=== PATIENT | female | born 1930 | race Caucasian/White ===

== ENCOUNTER 2017-08-10 17:06 | Inpatient (IN) | payer OTHER ==
--- NOTE | 2017-08-10 17:44 | EDPHY ---
H & P Stated Complaint: Sent by PCP, swelling to right calf. Time Seen by Provider: 08/10/17 17:43 HPI/ROS: HPI: This 87-year-old female who presents with Chief Complaint:Sent by PCP, swelling to right calf. Location: Right calf Quality: Swelling Duration: 3 days Signs and Symptoms: No bleeding, no radiation, no numbness, no weakness, no tingling, + redness, + weeping, no decreased range of motion Timing: Gradual onset Severity: Moderate Context: Patient presents with complaints of right calf swelling, redness, warmth and weeping clear drainage for the last 3 days per the patient. Was seen by the PCP today who was concerned about deep venous thrombosis so sent to the emergency room for further evaluation. No history of diabetes/peripheral vascular disease/injury. Patient is ambulatory without deficits. Denies any recent long distance trips. No chest pain/shortness of breath/fevers/cold extremities. Modifying Factors: Went to PCP today Comment: ROS: see HPI Constitutional: No fever, no chills, no weight loss Eyes: No blurred vision Respiratory: No shortness of breath, no cough Cardiovascular: No chest pain Gastrointestinal: No nausea, no vomiting no diarrhea Genitourinary: No dysuria Extremities: No myalgias Neurologic: No weakness, no numbness Skin: No rashes Hematologic: No bruising, no bleeding MEDICAL/SURGICAL/SOCIAL HISTORY: Medical history: Hypertension and depression. Surgical history: Denies Social history: Support from son CONSTITUTIONAL: Elderly white female wearing sunglasses, awake and alert, no obvious distress HEENT: Atraumatic and normocephalic, PERRL, EOMI. Tympanic membranes clear. Oropharynx clear, no exudate and moist pink mucosa. Airway patent. No lymphadenopathy. No meningismus. Cardiovascular: Normal S1/S2, regular rate, regular rhythm, without murmur rub or gallop. PULMONARY/CHEST: Symmetrical and nontender. Clear to auscultation bilaterally. Good air movement. No accessory muscle usage. ABDOMEN: Soft, nondistended, nontender, no rebound, no guarding, no peritoneal signs, no masses or organomegaly. No CVAT. EXTREMITIES: 2/2 pedal pulses, right calf is twice the size of the left calf; positive Homans sign. Moderate erythema noted from right midfoot to mid calf with 1+ pitting edema and clear weeping and thickened skin. Hyperpigmentation changes noted in bilateral lower extremities but worse on the right. no deformities, no clubbing, no cyanosis or edema. Right lower extremity Extremely sensitive to light touch. NEUROLOGICAL: no focal neuro deficits. GCS 15. SKIN: Warm and dry, no erythema. no rash. Good capillary refill. Source: Patient Exam Limitations: No limitations - Personal History Current Tetanus Diphtheria and Acellular Pertussis (TDAP): Unsure - Medical/Surgical History Hx Asthma: No Hx Chronic Respiratory Disease: No Hx Diabetes: No Hx Cardiac Disease: No Hx Renal Disease: No Hx Cirrhosis: No Hx Alcoholism: No Hx HIV/AIDS: No Hx Splenectomy or Spleen Trauma: No Other PMH: HTN - Social History Smoking Status: Never smoked Constitutional: Initial Vital Signs Temperature (C) 36.5 C 08/10/17 17:10 Heart Rate 105 H 08/10/17 17:10 Respiratory Rate 16 08/10/17 17:10 Blood Pressure 132/86 H 08/10/17 17:10 O2 Sat (%) 93 08/10/17 17:10 O2 Delivery Mode Room Air Allergies/Adverse Reactions: No Known Allergies Allergy (Unverified 08/10/17 17:17) Home Medications: Medication Instructions Recorded Amlodipine Besylate 08/10/17 Medical Decision Making - Diagnostics Imaging Results: Imaging Impressions Extremity Venous Study 08/10/17 17:43 Impression: No evidence of deep vein thrombosis in the right leg. No answer at extension for Cass Wheeler at 1905 hours. ED Course/Re-evaluation: Labs including blood cultures, IV antibiotics and right lower extremity ultrasound ordered No signs of up hypoxia/respiratory distress/neurovascular compromise/tenting of skin/compartment syndrome/extremities and joints examined above and below area of concern and are neurovascularly intact/ischemia. 1915: Called by radiologist and no signs of deep venous thrombosis. Patient has significant cellulitis and will require admission to the hospital. Discussed case with attending. IV vancomycin 1 g given. 1933: Spoke with hospitalist who kindly agrees to admit patient for further care. Differential Diagnosis: Leg swelling including but not limited to hypoalbuminemia, congestive heart failure, cor pulmonale, chronic venous stasis and DVT. - Data Points Laboratory Results: Laboratory Results 08/10/17 18:12 08/10/17 18:12 08/10/17 08/10/17 18:12 18:12 WBC 9.04 10^3/uL 10^3/uL (3.80-9.50) RBC 4.08 10^6/uL L 10^6/uL (4.18-5.33) Hgb 12.3 g/dL L g/dL (12.6-16.3) Hct 36.9 % L % (38.0-47.0) MCV 90.4 fL fL (81.5-99.8) MCH 30.1 pg pg (27.9-34.1) MCHC 33.3 g/dL g/dL (32.4-36.7) RDW 13.1 % % (11.5-15.2) Plt Count 263 10^3/uL 10^3/uL (150-400) MPV 11.2 fL fL (8.7-11.7) Neut % (Auto) 70.3 % % (39.3-74.2) Lymph % (Auto) 20.4 % % (15.0-45.0) Maury % (Auto) 7.4 % % (4.5-13.0) Eos % (Auto) 1.2 % % (0.6-7.6) Baso % (Auto) 0.4 % % (0.3-1.7) Nucleat RBC Rel Count 0.0 % % (0.0-0.2) Absolute Neuts (auto) 6.35 10^3/uL 10^3/uL (1.70-6.50) Absolute Lymphs (auto) 1.84 10^3/uL 10^3/uL (1.00-3.00) Absolute Monos (auto) 0.67 10^3/uL 10^3/uL (0.30-0.80) Absolute Eos (auto) 0.11 10^3/uL 10^3/uL (0.03-0.40) Absolute Basos (auto) 0.04 10^3/uL 10^3/uL (0.02-0.10) Absolute Nucleated RBC 0.00 10^3/uL 10^3/uL (0-0.01) Immature Gran % 0.3 % % (0.0-1.1) Seg Neutrophils % 82 % % Lymphocytes % 12 % % Monocytes % 3 % % Eosinophils % 3 % % Immature Gran # 0.03 10^3/uL 10^3/uL (0.00-0.10) Absolute Seg Neuts 7.41 10^/uL H 10^/uL (1.70-6.50) Absolute Lymphocytes 1.08 10^3/uL 10^3/uL (1.00-3.00) Absolute Monocytes 0.27 10^3/uL L 10^3/uL (0.30-0.80) Absolute Eosinophils 0.27 10^3/uL 10^3/uL (0.03-0.40) RBC/WBC/PLT Morphology NORMAL (NORMAL) Platelet Estimate ADEQUATE (ADEQ) Sodium 136 mEq/L mEq/L (134-144) Potassium 4.6 mEq/L mEq/L (3.5-5.2) Chloride 103 mEq/L mEq/L (97-110) Carbon Dioxide 23 mEq/l mEq/l (22-31) Anion Gap 10 mEq/L mEq/L (8-16) BUN 19 mg/dL mg/dL (7-23) Creatinine 0.8 mg/dL mg/dL (0.6-1.0) Estimated GFR > 60 Glucose 94 mg/dL mg/dL (70-100) Calcium 9.3 mg/dL mg/dL (8.5-10.4) Departure - Departure Disposition: [facility] Inpatient Acute Clinical Impression: Cellulitis of right leg
[2017-08-10 18:25] LABS: PLATELET COUNT 263 10^3/uL (150-400)
[2017-08-10] MEDS ORDERED: VANCOMYCIN HCL/NORMAL SALINE 250 ML IV ONE ×2 (19:34)
[2017-08-10] MEDS ORDERED: ONDANSETRON 4 MG/2 ML VIAL IVP PRN ×2 (21:34)
[2017-08-10] MEDS ORDERED: ACETAMINOPHEN 325 MG TAB PO PRN ×2 (21:34)
[2017-08-10] MEDS ORDERED: ONDANSETRON DISINTEGRATING 4 MG TAB PO PRN ×2 (21:34)
[2017-08-10] MEDS ORDERED: NS 1,000 ML IV SCH ×2 (21:45)
[2017-08-10] MEDS ORDERED: FLUCONAZOLE 150 MG TAB PO ONE ×2 (21:49)
--- NOTE | 2017-08-10 22:02 | CPEKG ---
Heart Rate: 92 RR Interval: 652 QRSD Interval: 84 QT Interval: 340 QTC Interval: 421 QRS [place]: 38 T Wave [place]: 25 EKG Severity - ABNORMAL ECG - EKG Impression: LOTS OF ARTIFACT INTERFERES WITH INTERPRETATION EKG Impression: SINUS RHYTHM Electronically Signed By: Og Vanessa 11-Aug-2017 05:46:59
--- NOTE | 2017-08-10 23:12 | GHP ---
[f rep st] HISTORY AND PHYSICAL DATE OF ADMISSION: 08/10/2017 CHIEF COMPLAINT: Right lower extremity pain and redness. HISTORY OF PRESENT ILLNESS: The patient is an 87-year-old female with a history of hypertension who presents to the emergency department with pain and redness of her right lower extremity. She states her symptoms started about 1 month ago. She has noted increasing redness over the past several weeks and finally saw her primary care physician today due to increased swelling, pain, redness, and drainage. She denies fevers or chills. She has had no chest pain or shortness of breath. She denies a history of thromboembolic disease. She is not a diabetic. She lives by herself independently. In the emergency department, a lower extremity venous Doppler was performed which was negative for DVT. She was given a dose of vancomycin and is admitted to the hospital for further management. PAST MEDICAL AND SURGICAL HISTORY: 1. Hypertension. 2. Depression. SOCIAL HISTORY: The patient is . She lives in a condo by herself and receives support from her son, who is her power of commercial litigation attorney. FAMILY HISTORY: Reviewed and noncontributory. REVIEW OF SYSTEMS: A 10-point review of systems was performed and is negative except as per HPI. OBJECTIVE: VITAL SIGNS: Temperature is 37 degrees, blood pressure 140/99, heart rate 115, respiratory rate is 16. She is 95% on room air. GENERAL: The patient is awake, alert, and oriented, in no acute distress. HEENT: Head is atraumatic, normocephalic. Pupils equal, round, and reactive to light. Extraocular movements intact. Oropharynx is clear. Mucous membranes are moist. NECK: Supple. There is no JVD. HEART: Regular with what sounds like frequent PVCs. LUNGS: Clear to auscultation bilaterally. ABDOMEN: Soft, nondistended, nontender with normoactive bowel sounds. EXTREMITIES: Bilateral lower extremities have marked onychomycosis with poor foot hygiene and dry skin with cracking. There is also evidence of interdigital tinea pedis as well as hyperkeratotic tinea. Her right lower extremity has some severe cracking of the skin associated with some serous drainage and marked erythema of the right lower extremity distal to the knee involving most of the lower leg, ankle and foot. She has 2+ peripheral pulses. Extremities are otherwise warm and well perfused. DIAGNOSTIC DATA: Right lower extremity venous Doppler shows no evidence of DVT. ASSESSMENT AND PLAN: The patient is an 87-year-old female with history of hypertension, who is admitted to the hospital with right lower extremity cellulitis. 1. Right lower extremity cellulitis. Source is likely cracking skin / tinea. She is afebrile. She does not meet SIRS criteria with a normal white count and a normal lactate. Blood cultures are pending. I will send a wound culture of the drainage from her leg. Continue vancomycin for now. We will keep the leg elevated above the heart. 2. Tinea pedis. She has interdigital disease in her feet as well as hyperkeratotic findings. This is likely contributory to her portal of entry for infection. I will give her a dose of fluconazole now and she should continue treatment as an outpatient to prevent recurrent cellulitis. 3. Tachycardia. Likely related to infection, possible volume depletion. Her heart rhythm is irregular on auscultation, ?PAC/PVC's. I will check an EKG. Will gently hydrate her with NS overnight. She has no hypoxemia or pleuritic symptoms to suggest PE. In addition, her lower extremity Doppler was negative for DVT. If her EKG shows atrial fibrillation, we will start oral diltiazem for rate control and will need to address anticoagulation. 4. Hypertension. We will continue her felodipine unless she has atrial fibrillation, in which case would favor a non-dihydropyridine calcium channel guerda for rate control such as diltiazem. 5. Depression. Continue Zoloft. 6. Possible cognitive impairment. I have requested a cognitive evaluation by the speech therapy team. 7. Deep venous thrombosis prophylaxis. Patient is high risk. We will start Lovenox. 8. Disposition. Patient is admitted to inpatient status. I anticipate she will need greater than 48 hours of hospitalization for ongoing management of her cellulitis. PT/OT evaluations are requested. We may need to consider placement. /[id number]/MODL MTDD
--- NOTE | 2017-08-11 05:10 | CPEKG ---
Heart Rate: 134 RR Interval: 448 QRSD Interval: 66 QT Interval: 324 QTC Interval: 484 QRS [place]: 21 T Wave [place]: 14 EKG Severity - ABNORMAL ECG - EKG Impression: ATRIAL FLUTTER, A-RATE 300 --NEW SINCE AUGUST 10, 2017 EKG Impression: BORDERLINE PROLONGED QT INTERVAL Electronically Signed By: Og Vanessa 11-Aug-2017 05:45:27
[2017-08-11] MEDS ORDERED: METOPROLOL TARTRATE 5 MG/5 ML INJ IVP ONE ×2 (05:26)
[2017-08-11] MEDS ORDERED: DILTIAZEM 125 MG in D5W 125 ML IV SCH (05:30)
[2017-08-11] MEDS ORDERED: DILTIAZEM 25 MG/5 ML VIAL IVP SCH ×2 (05:30)
--- NOTE | 2017-08-11 05:39 | HOSPPROG ---
Hospitalist Progress Note Assessment/Plan: Hospitalist night float note RN called to notify patient with HR increased to 130s and irregular for AM VS. asymptomatic an was sleeping. Patient denies any chest pain/palpitations. no previous history of arrhythmia. increased HR noted earlier in the day and initial ekg junctional rhythm. Patient admitted with right LE swelling/cellulitis without SIRS. Chart and H&P briefly reviewed. Gen - NAD. pleasant elderly frail lady lays quietly in bed. CV - tachycardic and irregular. slightly distant heart sounds. Resp - CTA-B Abd- obese, soft NTTP Ext - right lower extremity erythematous with dry flaking and cracking over heel. 2+ nonpitting edema. LLE with 1+ pedal pulses no edema or open sores. Neuro - nonfocal. moves all extremities. generalized weakness. some short term memory issues and patient occasionally repetitive but no apparent aphasia. CN intact. EKG - atrial flutter RVR HR 120s. Plan - transfer to PCU. initial consideration for metoprolol however BPs are low /low normal. SBP 90s-100s. order cardizem bolus/gtt as tolerated once on unit. echo in AM. check tsh. reviewed COR status. patient son Gato is MDPOA if needed but patient desires to be FULL COR. Objective: Vital Signs Temp Pulse Resp BP Pulse Ox 36.5 C 123 H 16 101/65 92 08/11/17 04:00 08/11/17 04:00 08/11/17 04:00 08/11/17 04:00 08/11/17 04:00 08/09/17 08/10/17 08/11/17 05:59 05:59 05:59 Intake Total 150 Balance 150 ICD10 Worksheet Patient Problems: Problems Problem Status Onset Cellulitis of right leg Acute
[2017-08-11] MEDS ORDERED: ENOXAPARIN 80 MG/0.8 ML SYR SC SCH ×4 (05:45→11:30)
[2017-08-11] MEDS ORDERED: ENOXAPARIN 40 MG/0.4 ML SYR SC SCH ×2 (09:00)
[2017-08-11 09:21] LABS: PLATELET COUNT 291 10^3/uL (150-400)
--- NOTE | 2017-08-11 11:11 | HOSPPROG ---
Hospitalist Progress Note Assessment/Plan: Assessment: 87-year-old female presents with right lower extremity cellulitis complicated by acute atrial flutter Plan: 1. Cellulitis. Right lower extremity, wound cultures currently pending but demonstrating initial Gram-positive cocci bacillus on Gram stain -continue vancomycin, currently day 1 -ongoing wound care consultation -ultrasound demonstrating no DVT -will get Infectious Disease consultation to further assess whether this is more consistent with venous stasis skin breakdown issue versus cellulitis, and to assist in duration and oral antibiotic management 2. Atrial flutter. Acute, new problem this provider, further workup indicated. Present on EKG overnight, personally interpreted, demonstrating a flutter mechanism intermittently with a sinus rhythm, with heart rates up into the 120s -patient reports she has never experienced this issue before, most likely provoked by cellulitis -chemically converted into a normal sinus rhythm with diltiazem drip, will adjust to oral diltiazem 30 mg q.6 hours and adjust to 24 hour acting medication tomorrow based on response -chads 2 Vasc score is 4, conferring of 4.8% annual risk of CVA, patient reports that she is truly allergic to aspirin, systemic anticoagulation is indicated -given the patient's episode may have been provoked by this acute illness, and she may not experience subsequent atrial flutter, would recommend at least 30 days of systemic anticoagulation with outpatient cardiology follow-up and 30 day monitor, to gauge whether she requires systemic anticoagulation in the future -the patient is undecided whether to pursue Coumadin verses DOAC, she will continue on Lovenox and Coumadin at this time, and if she decides to utilize Coumadin moving forward, she does not require a actual bridge at discharge ( only bridging at present b/c patient may return into Aflutter which could necessitate DCCV) -echocardiogram ordered and pending 3. Hypertension. Chronic, now the patient is on diltiazem, hold other home antihypertensive medication 4. Possible mild cognitive impairment. Noted by Dr. Nicole Mac on her initial exam, cog eval appreciated -recommend outpatient mini-mental status exam at Dr. Archuleta office Diet. Regular Prophylaxis. High risk patient, on Lovenox Code. Full Disposition. Anticipated discharge uncertain, stabilizing atrial flutter with further workup today. Subjective: Patient reports some pain and discomfort in her distal right lower extremity Objective: Vital Signs Temp Pulse Resp BP Pulse Ox 37.2 C 91 10 L 115/61 96 08/11/17 07:42 08/11/17 07:42 08/11/17 07:42 08/11/17 07:42 08/11/17 07:42 Microbiology 08/10/17 22:15 Gram Stain - Final Leg - Swab Laboratory Results 08/11/17 08:09 08/11/17 08:09 08/10/17 08/11/17 08/12/17 05:59 05:59 05:59 Intake Total 150 350 Balance 150 350 - Physical Exam Constitutional: no apparent distress, not in pain, obese, No uncomfortable Cardiovascular: systolic murmur (/ at the base), edema (Trace right lower extremity), No irregularly irregular, No tachycardia Respiratory: no respiratory distress, no rales or rhonchi, clear to auscultation Gastrointestinal: normoactive bowel sounds, soft, non-tender abdomen, no palpable masses Skin: other (Mild erythema at the edge of the bandage, some blanchable bili and duskiness of the plantar surface of the right foot with very poor nail beds, recently dressed by wound care) Neurologic: AAOx3, sensation intact bilaterally, No weakness Psychiatric: interacting appropriately, not anxious, not encephalopathic, thought process linear ICD10 Worksheet Patient Problems: Problems Problem Status Onset Cellulitis of right leg Acute
[2017-08-11] MEDS: DILTIAZEM 30 MG TAB PO SCH ×4 (11:34→17:29)
--- NOTE | 2017-08-11 12:15 | WOCRNPDOC ---
WOCRN Advanced Assessment Note - Skin Integrity Problem, Advanced Assess Right Lower Leg Dressing Type: Open to Air Exudate Amount: Moderate Exudate Color: Clear, Yellow Exudate Characteristic(s): Serous Integumentary Issue Intervention: Dressing Applied Klaudia Wound Tissue: Erythema, Swollen, Venous Dermatitis, Painful/Tender Klaudia Wound Swelling: Moderate Wound Bed Color: Red, Yellow Wound Bed Constitution: Smooth Tissue (30%, non-granulating), Mixed Loose & Adhered Slough/Eschar (70%) Wound Edges: Irregular Site Odor: Slight Site Measurement - Head-to-Toe Length X Width X Depth (cm): 6ahe4exl6.2cm Pulse Location & Description: +2 DP bilaterally Extremity Temperature: Warm Skin Integrity Problem Comment: Diffuse, irregularly-shaped wound noted on anterior/medial aspect of RLE, moderately exudative, ECHO during initial assessment. Wound had saturated underlying chux, and was visibly weeping. There is a mixture of loose and adherent slough scattered throughout this wound, w/ smooth, non-granulating tissue along margins. Erythema and edema periwound, extending from ankle to below the knee, intensely painful during cleansing w/ NS and gauze. While the cellulitis in this extremity is acute, changes in the periwound skin indicate that the underlying cause of this wound is potentially a more chronic process like venous insufficiency. She has what appears to be venous dermatitis extending from the lower leg and onto her ankle. Patient reports having a "rash" on this extremity for about a month, which she treated w / Ulises-larson cream. Subsequently she reported the skin became weepy and itchy. She also reports changing the dressing to this wound every 6 hours in the weeks prior to her hospitalization, saying it became "wet" often. She denies history of edema or use of compression stockings. Presently, dressing over the wound consists of Mepilex transfer to help manage exudate and protect periwound skin, followed by ABD and Kerdaryn. When she is over the acute phase of this infection, I anticipate she will need and absorbent, antimicrobial foam dressing, and potentially some compression. While she did have a venous duplex ultrasound in ED to r/o DVT, she would benefit from an additional ultrasound to assess for insufficiency. Wound care will continue to follow, rounding on patient again on 08/13. Report given to autobody technicianTOMY Watkins.
--- NOTE | 2017-08-11 12:40 | WOCRNPDOC ---
WOCRN Advanced Assessment Note - Skin Integrity Problem, Advanced Assess Right Buttock Dressing Type: Allevyn Life Dressing Description: Clean/Dry, Intact Exudate Amount: Scant Exudate Characteristic(s): Serosanguinous Integumentary Issue Intervention: Visualized Under Dressing Klaudia Wound Tissue: Blanching, Intact Klaudia Wound Swelling: None Wound Bed Color: Red, Yellow Wound Bed Constitution: Granulation Tissue, Loose Slough Site Odor: None Site Measurement - Head-to-Toe Length X Width X Depth (cm): 0.1xln1tyy5.2cm Skin Integrity Problem Comment: Discrete, circular-shaped wound over patient's R buttock. Trace, loose slough noted, mostly granulation tissue throughout. Periwound skin is intact and blanching. Patient was unaware of this wound, and was therefore unable to provide any history. She also denies pain to this site. Uncertain of etiology, though its location over the fleshy part of her R buttock indicates this wound is not pressure related. Will initiate pressure- relieving interventions as a precaution. Will re-assess on , 08/13.
--- NOTE | 2017-08-11 12:40 | WOCRNPDOC ---
WOCRN Advanced Assessment Note - Skin Integrity Problem, Advanced Assess Right Buttock Dressing Type: Allevyn Life Dressing Description: Clean/Dry, Intact Exudate Amount: Scant Exudate Characteristic(s): Serosanguinous Integumentary Issue Intervention: Visualized Under Dressing Klaudia Wound Tissue: Blanching, Intact Klaudia Wound Swelling: None Wound Bed Color: Red, Yellow Wound Bed Constitution: Granulation Tissue, Loose Slough Site Odor: None Site Measurement - Head-to-Toe Length X Width X Depth (cm): 0.1iny8ugv1.2cm Skin Integrity Problem Comment: Discrete, circular-shaped wound over patient's R buttock. Trace, loose slough noted, mostly granulation tissue throughout. Periwound skin is intact and blanching. Patient was unaware of this wound, and was therefore unable to provide any history. She also denies pain to this site. Uncertain of etiology, though its location over the fleshy part of her R buttock indicates this wound is not pressure related. Will initiate pressure- relieving interventions as a precaution. Will re-assess on , 08/13.
--- NOTE | 2017-08-11 12:40 | WOCRNPDOC ---
WOCRN Advanced Assessment Note - Skin Integrity Problem, Advanced Assess Right Buttock Dressing Type: Allevyn Life Dressing Description: Clean/Dry, Intact Exudate Amount: Scant Exudate Characteristic(s): Serosanguinous Integumentary Issue Intervention: Visualized Under Dressing Klaudia Wound Tissue: Blanching, Intact Klaudia Wound Swelling: None Wound Bed Color: Red, Yellow Wound Bed Constitution: Granulation Tissue, Loose Slough Site Odor: None Site Measurement - Head-to-Toe Length X Width X Depth (cm): 0.6ehs8sbq8.2cm Skin Integrity Problem Comment: Discrete, circular-shaped wound over patient's R buttock. Trace, loose slough noted, mostly granulation tissue throughout. Periwound skin is intact and blanching. Patient was unaware of this wound, and was therefore unable to provide any history. She also denies pain to this site. Uncertain of etiology, though its location over the fleshy part of her R buttock indicates this wound is not pressure related. Will initiate pressure- relieving interventions as a precaution. Will re-assess on , 08/13.
--- NOTE | 2017-08-11 15:23 | ECHO ---
[email or web address] [address] [address] Main: [phone] Fax: Transthoracic Echocardiogram Name: ALYSSIA HERNANDEZ MR#: [id number] Study Date: 08/11/2017 Study Time: 10:12 AM Date of : 1930 Age: 87 year(s) Height: 152.4 cm (60 in.) Weight: 69.85 kg (154 lb.) BSA: 1.67 m2 Gender: Female Examination: Echo Indication: Atrial Flutter Image Quality: Technically Difficult Contrast: Requested by: Clau Issa BP: 115 mmHg/61 mmHg Heart Rate: 92 bpm Rhythm: Indication: Atrial Flutter Procedure Staff B2B Sales Executive: Cristiane Daly Reading Physician: Edmond Lovelace Requesting Provider: Conclusions: Mild to moderate LVH. Normal global systolic LV function. EF is 62 %. The left atrium is mildly dilated. Mild mitral annular calcification. Trivial to mild mitral regurgitation. Moderate tricuspid regurgitation is present. Normal size aortic root measuring 2.6 cm. Normal size ascending aorta measuring 2.8 cm. Measurements: Chambers Valvular Assessment AV/MV Valvular Assessment TV/PV Normal Normal Normal Name Value Range Name Value Range Name Value Range Ao Georgina (MM): 2.6 cm (2.2 cm-3.7 AV Vmax: 1.39 m/s (1 m/s-1.7 TR Vmax: 2.69 mm/s ( - ) cm) m/s) TR PGmax: 29 mmHg ( - ) IVSd (2D): 1.1 cm (0.6 cm-1.1 AV maxP mmHg ( - ) syst. PAP: 34 mmHg ( - ) cm) LVOT Vmax: 1.16 m/s (0.7 m/s-1.1 PV Vmax: 0.91 m/s (0.6 m/s-0.9 LVDd (2D): 3.2 cm (3.9 cm-5.3 m/s) m/s) cm) MV E Vmax: 1.34 m/s ( - ) PV PGmax: 3 mmHg ( - ) LVDs (2D): 2.0 cm (2.1 cm-4 MV A Vmax: 0.79 m/s ( - ) cm) MV E/A: 1.70 ( - ) LVPWd (2D): 1.0 cm ( - ) LVEF (MOD4): 62 % (>=55 %) RVDd(2D): 2.8 cm (1.9 cm-3.8 cmmm) Continued Measurements: Chambers Valvular Assessment AV/MV Valvular Assessment TV/PV Patient: ALYSSIA HERNANDEZ Study Date: 08/11/2017 Page 1 of 2 10:12 AM Name Value Name Value Name Value LADs Lon.2 cm MV DecTime: 204 m/s CVP (est.): 5 mmHg LA Area: 21.9 cm2 MV E' Septal: 0.06 m/s LA Volume: 54 ml MV E/E' Septal: 24.10 LA Volume Index: 32.3 ml/m2 MV E/E' Lateral: 25.90 RA Area: 16.0 cm2 Additional Vessels Name Value Ao Ascendin.8 cm Findings: Left Ventricle: Normal size left ventricle. Mild to moderate LVH. Normal global systolic LV function. EF is 62 %. No regional wall motion abnormality. Grade 2 diastolic dysfunction (pseudonormalized LV filling pattern). Right Ventricle: Normal size right ventricle. Normal RV function. Left Atrium: The left atrium is mildly dilated. Right Atrium: The right atrium is normal in size. Mitral Valve: There is mild thickening of the mitral valve leaflets. Mild mitral annular calcification. Trivial to mild mitral regurgitation. Aortic Valve: The aortic valve is tri-leaflet. Aortic sclerosis is present. There is no significant aortic valve regurgitation. No aortic valve stenosis is present. Tricuspid Valve: The tricuspid valve appears normal. Moderate tricuspid regurgitation is present. Borderline elevated pumonary artery pressure. Pulmonic Valve: Pulmonary valve not well visualized. There is no pulmonic regurgitation seen. Aorta: Normal size aortic root measuring 2.6 cm. Normal size ascending aorta measuring 2.8 cm. Pericardium: No pericardial effusion. (No Signature Object) Patient: ALYSSIA HERNANDEZ Study Date: 08/11/2017 Page 2 of 2 10:12 AM [id number]
--- NOTE | 2017-08-11 15:23 | ECHO ---
[email or web address] [address] [address] Main: [phone] Fax: Transthoracic Echocardiogram Name: ALYSSIA HERNANDEZ MR#: [id number] Study Date: 08/11/2017 Study Time: 10:12 AM Date of : 1930 Age: 87 year(s) Height: 152.4 cm (60 in.) Weight: 69.85 kg (154 lb.) BSA: 1.67 m2 Gender: Female Examination: Echo Indication: Atrial Flutter Image Quality: Technically Difficult Contrast: Requested by: Clau Issa BP: 115 mmHg/61 mmHg Heart Rate: 92 bpm Rhythm: Indication: Atrial Flutter Procedure Staff Park Interpretive Specialist: Cristiane Daly Reading Physician: Edmond Lovelace Requesting Provider: Conclusions: Mild to moderate LVH. Normal global systolic LV function. EF is 62 %. The left atrium is mildly dilated. Mild mitral annular calcification. Trivial to mild mitral regurgitation. Moderate tricuspid regurgitation is present. Normal size aortic root measuring 2.6 cm. Normal size ascending aorta measuring 2.8 cm. Measurements: Chambers Valvular Assessment AV/MV Valvular Assessment TV/PV Normal Normal Normal Name Value Range Name Value Range Name Value Range Ao Georgina (MM): 2.6 cm (2.2 cm-3.7 AV Vmax: 1.39 m/s (1 m/s-1.7 TR Vmax: 2.69 mm/s ( - ) cm) m/s) TR PGmax: 29 mmHg ( - ) IVSd (2D): 1.1 cm (0.6 cm-1.1 AV maxP mmHg ( - ) syst. PAP: 34 mmHg ( - ) cm) LVOT Vmax: 1.16 m/s (0.7 m/s-1.1 PV Vmax: 0.91 m/s (0.6 m/s-0.9 LVDd (2D): 3.2 cm (3.9 cm-5.3 m/s) m/s) cm) MV E Vmax: 1.34 m/s ( - ) PV PGmax: 3 mmHg ( - ) LVDs (2D): 2.0 cm (2.1 cm-4 MV A Vmax: 0.79 m/s ( - ) cm) MV E/A: 1.70 ( - ) LVPWd (2D): 1.0 cm ( - ) LVEF (MOD4): 62 % (>=55 %) RVDd(2D): 2.8 cm (1.9 cm-3.8 cmmm) Continued Measurements: Chambers Valvular Assessment AV/MV Valvular Assessment TV/PV Patient: ALYSSIA HERNANDEZ Study Date: 08/11/2017 Page 1 of 2 10:12 AM Name Value Name Value Name Value LADs Lon.2 cm MV DecTime: 204 m/s CVP (est.): 5 mmHg LA Area: 21.9 cm2 MV E' Septal: 0.06 m/s LA Volume: 54 ml MV E/E' Septal: 24.10 LA Volume Index: 32.3 ml/m2 MV E/E' Lateral: 25.90 RA Area: 16.0 cm2 Additional Vessels Name Value Ao Ascendin.8 cm Findings: Left Ventricle: Normal size left ventricle. Mild to moderate LVH. Normal global systolic LV function. EF is 62 %. No regional wall motion abnormality. Grade 2 diastolic dysfunction (pseudonormalized LV filling pattern). Right Ventricle: Normal size right ventricle. Normal RV function. Left Atrium: The left atrium is mildly dilated. Right Atrium: The right atrium is normal in size. Mitral Valve: There is mild thickening of the mitral valve leaflets. Mild mitral annular calcification. Trivial to mild mitral regurgitation. Aortic Valve: The aortic valve is tri-leaflet. Aortic sclerosis is present. There is no significant aortic valve regurgitation. No aortic valve stenosis is present. Tricuspid Valve: The tricuspid valve appears normal. Moderate tricuspid regurgitation is present. Borderline elevated pumonary artery pressure. Pulmonic Valve: Pulmonary valve not well visualized. There is no pulmonic regurgitation seen. Aorta: Normal size aortic root measuring 2.6 cm. Normal size ascending aorta measuring 2.8 cm. Pericardium: No pericardial effusion. (No Signature Object) Patient: ALYSSIA HERNANDEZ Study Date: 08/11/2017 Page 2 of 2 10:12 AM [id number]
--- NOTE | 2017-08-11 15:23 | ECHO ---
[email or web address] [address] [address] Main: [phone] Fax: Transthoracic Echocardiogram Name: ALYSSIA HERNANDEZ MR#: [id number] Study Date: 08/11/2017 Study Time: 10:12 AM Date of : 1930 Age: 87 year(s) Height: 152.4 cm (60 in.) Weight: 69.85 kg (154 lb.) BSA: 1.67 m2 Gender: Female Examination: Echo Indication: Atrial Flutter Image Quality: Technically Difficult Contrast: Requested by: Clau Issa BP: 115 mmHg/61 mmHg Heart Rate: 92 bpm Rhythm: Indication: Atrial Flutter Procedure Staff Manager Gift: Cristiane Daly Reading Physician: Edmond Lovelace Requesting Provider: Conclusions: Mild to moderate LVH. Normal global systolic LV function. EF is 62 %. The left atrium is mildly dilated. Mild mitral annular calcification. Trivial to mild mitral regurgitation. Moderate tricuspid regurgitation is present. Normal size aortic root measuring 2.6 cm. Normal size ascending aorta measuring 2.8 cm. Measurements: Chambers Valvular Assessment AV/MV Valvular Assessment TV/PV Normal Normal Normal Name Value Range Name Value Range Name Value Range Ao Georgina (MM): 2.6 cm (2.2 cm-3.7 AV Vmax: 1.39 m/s (1 m/s-1.7 TR Vmax: 2.69 mm/s ( - ) cm) m/s) TR PGmax: 29 mmHg ( - ) IVSd (2D): 1.1 cm (0.6 cm-1.1 AV maxP mmHg ( - ) syst. PAP: 34 mmHg ( - ) cm) LVOT Vmax: 1.16 m/s (0.7 m/s-1.1 PV Vmax: 0.91 m/s (0.6 m/s-0.9 LVDd (2D): 3.2 cm (3.9 cm-5.3 m/s) m/s) cm) MV E Vmax: 1.34 m/s ( - ) PV PGmax: 3 mmHg ( - ) LVDs (2D): 2.0 cm (2.1 cm-4 MV A Vmax: 0.79 m/s ( - ) cm) MV E/A: 1.70 ( - ) LVPWd (2D): 1.0 cm ( - ) LVEF (MOD4): 62 % (>=55 %) RVDd(2D): 2.8 cm (1.9 cm-3.8 cmmm) Continued Measurements: Chambers Valvular Assessment AV/MV Valvular Assessment TV/PV Patient: ALYSSIA HERNANDEZ Study Date: 08/11/2017 Page 1 of 2 10:12 AM Name Value Name Value Name Value LADs Lon.2 cm MV DecTime: 204 m/s CVP (est.): 5 mmHg LA Area: 21.9 cm2 MV E' Septal: 0.06 m/s LA Volume: 54 ml MV E/E' Septal: 24.10 LA Volume Index: 32.3 ml/m2 MV E/E' Lateral: 25.90 RA Area: 16.0 cm2 Additional Vessels Name Value Ao Ascendin.8 cm Findings: Left Ventricle: Normal size left ventricle. Mild to moderate LVH. Normal global systolic LV function. EF is 62 %. No regional wall motion abnormality. Grade 2 diastolic dysfunction (pseudonormalized LV filling pattern). Right Ventricle: Normal size right ventricle. Normal RV function. Left Atrium: The left atrium is mildly dilated. Right Atrium: The right atrium is normal in size. Mitral Valve: There is mild thickening of the mitral valve leaflets. Mild mitral annular calcification. Trivial to mild mitral regurgitation. Aortic Valve: The aortic valve is tri-leaflet. Aortic sclerosis is present. There is no significant aortic valve regurgitation. No aortic valve stenosis is present. Tricuspid Valve: The tricuspid valve appears normal. Moderate tricuspid regurgitation is present. Borderline elevated pumonary artery pressure. Pulmonic Valve: Pulmonary valve not well visualized. There is no pulmonic regurgitation seen. Aorta: Normal size aortic root measuring 2.6 cm. Normal size ascending aorta measuring 2.8 cm. Pericardium: No pericardial effusion. (No Signature Object) Patient: ALYSSIA HERNANDEZ Study Date: 08/11/2017 Page 2 of 2 10:12 AM [id number]
[2017-08-11] MEDS ORDERED: WARFARIN SODIUM 4 MG TAB PO SCH ×2 (16:00)
[2017-08-11] MEDS ORDERED: VANCOMYCIN HCL/NORMAL SALINE 250 ML IV SCH ×2 (20:00)
[2017-08-11] MEDS: SERTRALINE HCL 50 MG TAB PO SCH ×2 (20:44)
[2017-08-11] MEDS ORDERED: FELODIPINE 5 MG TAB.ER PO SCH ×4 (21:00)
[2017-08-12] MEDS: DILTIAZEM 30 MG TAB PO SCH ×10 (03:03→23:06)
[2017-08-12] MEDS: RIVAROXABAN 15 MG TAB PO SCH ×2 (08:32)
[2017-08-12] MEDS ORDERED: RIVAROXABAN 20 MG TAB PO SCH ×2 (09:00)
--- NOTE | 2017-08-12 12:34 | PCMIDPN ---
Assessment/Plan: # R LE cellulitis with associated wound showing MSSA, this is my 1st exam but reported improvement. Portal of entry likely wound, due to lower extremity venous insufficiency --dc vancomycin --start cefazolin 1gm IV q8 based on culture results --encouraged patient to elevate right lower extremity meds vancomycin 1gm IV q24h, # 3 Microbiology 08/10 blood cultures (2): NGTD 08/10 wound culture: MSSA Subjective: I hope I am not going home Thursday when the snowstorm hits No diarrhea, no rash, no itching Less pain right lower extremity Objective: Vital Signs Temp Pulse Resp BP Pulse Ox 37.0 C 82 89 H 115/68 95 08/12/17 11:12 08/12/17 11:34 08/12/17 11:12 08/12/17 11:34 08/12/17 11:12 Microbiology 08/10/17 22:15 Gram Stain - Final Leg - Swab Laboratory Results 08/11/17 08:09 08/11/17 08:09 08/11/17 08/12/17 08/13/17 05:59 05:59 05:59 Intake Total 150 1150 Output Total 250 Balance 150 900 - Physical Exam General Appearance: alert, no apparent distress EENT: pale conjunctiva Respiratory: lungs clear, No accessory muscle use Cardiac/Chest: regular rate, rhythm Extremities: swelling (Right lower extremity), erythema (Right lower extremity including foot), other (irregularly-shaped wound anterior/medial aspect of RLE) Peripheral Pulses: 2+: dorsalis-pedis (R), dorsalis-pedis (L) Abdomen: non-tender, soft Pelvic Exam: No north Skin: No rash Neuro/Psych: alert, normal mood/affect, oriented x 3 - Line/s PIV Lines: other (Right forearm), No drainage, No erythema ICD10 Worksheet Patient Problems: Problems Problem Status Onset Cellulitis of right leg Acute
--- NOTE | 2017-08-12 16:22 | HOSPPROG ---
Hospitalist Progress Note Assessment/Plan: New pt encounter 87-year-old female presents with right lower extremity cellulitis complicated by acute atrial flutter 1. MSSA Cellulitis. -Initially on Vancomycin, transitioned to Cefazolin on 08/12 -ID is following 2. Atrial flutter, new onset, now self converted back to NSR -Cont PO Diltiazem -Cont Xarelto 3. Hypertension. Chronic, now the patient is on diltiazem, hold other home antihypertensive medication 4. Possible mild cognitive impairment. Noted by Dr. Nicole Mac on her initial exam, cog eval appreciated -recommend outpatient mini-mental status exam at Dr. Archuleta office Diet. Regular Prophylaxis. High risk patient, on Lovenox Code. Full Disposition. continue inpatient for now Subjective: Feels OK. No Resp or CV sx's. Vancomycin switched to Cefazolin today Objective: Vital Signs Temp Pulse Resp BP Pulse Ox 37.4 C 80 20 124/69 H 95 08/12/17 15:34 08/12/17 15:34 08/12/17 15:34 08/12/17 15:34 08/12/17 15:34 Microbiology 08/10/17 22:15 Gram Stain - Final Leg - Swab Laboratory Results 08/11/17 08:09 08/11/17 08:09 08/11/17 08/12/17 08/13/17 05:59 05:59 05:59 Intake Total 150 1150 Output Total 250 600 Balance 150 900 -600 - Physical Exam Constitutional: no apparent distress, appears nourished Eyes: PERRL, EOMI Ears, Nose, Mouth, Throat: moist mucous membranes, hearing normal Cardiovascular: regular rate and rhythym Respiratory: no respiratory distress, no rales or rhonchi Gastrointestinal: normoactive bowel sounds Genitourinary: no bladder fullness Skin: warm, other (RLE with dressing in place. Erythema surrounding area of dressing) Neurologic: AAOx3 Psychiatric: interacting appropriately, not anxious, not encephalopathic ICD10 Worksheet Patient Problems: Problems Problem Status Onset Cellulitis of right leg Acute
[2017-08-12 19:03] LABS: PLATELET COUNT 263 10^3/uL (150-400)
[2017-08-12] MEDS: SERTRALINE HCL 50 MG TAB PO SCH ×2 (20:07)
[2017-08-13] MEDS: DILTIAZEM 30 MG TAB PO SCH ×8 (06:11→23:24)
--- NOTE | 2017-08-13 08:50 | PCMIDPN ---
Assessment/Plan: # R LE cellulitis with associated wound showing MSSA, lon erythema with significant skin sloughing suggestive of improvement, still with some leg swelling, superficial wound medial ankle with significant serous drainage ( likely related to venous insufficiency) Noted low grade temp overnight to 38, unclear significance, rest of exam and history shows improvement --continue elevation as much as possible --possibly another day or 2 of IV cefazolin dosed at 1gm IV q8 for cellulitis, then could transition to p.o. Keflex --monitor temp curve meds, antibiotics # 4 Cefazolin 1 g IV Q 8 Microbiology 08/10 blood cultures (2): NGTD 08/10 wound culture: MSSA US RLE: DVT negative 08/10 DVT Subjective: lives alone primary care team considering SNF Still with some pain RLE No diarrhea, itching, rash Objective: Vital Signs Temp Pulse Resp BP Pulse Ox 37.1 C 88 20 140/79 H 92 08/13/17 08:00 08/13/17 08:00 08/13/17 08:00 08/13/17 08:00 08/13/17 08:00 Microbiology 08/10/17 22:15 Gram Stain - Final Leg - Swab Laboratory Results 08/12/17 18:54 08/12/17 18:54 08/12/17 08/13/17 08/14/17 05:59 05:59 05:59 Intake Total 1150 1930 Output Total 250 1100 Balance 900 830 - Physical Exam General Appearance: alert, no apparent distress Respiratory: lungs clear, No accessory muscle use Cardiac/Chest: regular rate, rhythm Extremities: swelling (Right leg to knee), erythema (R LE to mid calf with associated prominent skin sloughing. Superficial Irregular wound right medial ankle, no purulent discharge) Abdomen: non-tender, soft Skin: pallor, No rash Neuro/Psych: alert, normal mood/affect, oriented x 3 - Time Spent With Patient Time Spent with Patient: greater than 25 minutes (Care coordinated with wound care team) Time Spent with Patient: Greater than 25 minutes spent on this patients care, greater than 50% of time spent counseling, educating, and coordinating care regarding the above mentioned plan. ICD10 Worksheet Patient Problems: Problems Problem Status Onset Cellulitis of right leg Acute
[2017-08-13] MEDS: RIVAROXABAN 15 MG TAB PO SCH ×2 (09:07)
--- NOTE | 2017-08-13 11:04 | WOCRNPDOC ---
WOCRN Advanced Assessment Note - Skin Integrity Problem, Advanced Assess Right Leg Dressing Type: ABD Pad, Kerlix, Mepitel Dressing Description: Intact, Shadowed Exudate Amount: Moderate Exudate Color: Clear, Yellow Exudate Characteristic(s): Serous Integumentary Issue Intervention: Dressing Changed Klaudia Wound Tissue: Erythema, Swollen, Weeping, Venous Dermatitis, Xerotic, Painful/Tender Klaudia Wound Swelling: Moderate Wound Bed Color: Yellow Wound Bed Constitution: Adhered Slough Skin Integrity Problem Comment: Dressing removed and wound observed with Dr. Camp present. Klaudia wound tissue red, swollen, and painful to the touch. Lower leg skin very dry and sloughing off. Moisturizing cream applied and will order BID going forward. Wound bed firm and yellow with adhered slough. Patient not tolerant of mechanical debridement at this time. Will initiate therapy to aid in autolytic debridement and manage wound drainage. Wound cleaned with Vashe and gauze. Mepilex applied to wound bed covered with an ABD and wrapped with Kerlix. Patient tolerated this well. TOMY Curtis in room and assissting. Wound care will follow up early next week.
--- NOTE | 2017-08-13 13:26 | HOSPPROG ---
Hospitalist Progress Note Assessment/Plan: 87-year-old female presents with right lower extremity cellulitis complicated by acute atrial flutter 1. MSSA Cellulitis. -Initially on Vancomycin, transitioned to Cefazolin on 08/12 -ID is following, no changes to abx today -transition to oral abx once ready per ID 2. Atrial flutter, new onset, now self converted back to NSR -Cont PO Diltiazem -Cont Xarelto 3. Hypertension. Chronic, now the patient is on diltiazem, hold other home antihypertensive medication 4. Possible mild cognitive impairment. Noted by Dr. Nicole Mac on her initial exam, cog eval appreciated -recommend outpatient mini-mental status exam at Dr. Archuleta office Diet. Regular Prophylaxis. High risk patient, on Lovenox Code. Full Disposition. continue inpatient for now Subjective: no overnight events, no new changes. Still in SR. ID is following. No CP or SOB, afebrile. Objective: Vital Signs Temp Pulse Resp BP Pulse Ox 37.1 C 88 14 138/62 H 91 L 08/13/17 11:51 08/13/17 12:03 08/13/17 11:51 08/13/17 12:03 08/13/17 11:51 Microbiology 08/10/17 22:15 Gram Stain - Final Leg - Swab Laboratory Results 08/12/17 18:54 08/12/17 18:54 08/12/17 08/13/17 08/14/17 05:59 05:59 05:59 Intake Total 1150 1930 Output Total 250 1100 Balance 900 830 - Physical Exam Constitutional: no apparent distress, appears nourished Eyes: PERRL, EOMI Ears, Nose, Mouth, Throat: moist mucous membranes Cardiovascular: regular rate and rhythym Respiratory: no respiratory distress, no rales or rhonchi, clear to auscultation Gastrointestinal: normoactive bowel sounds, soft, non-tender abdomen Neurologic: AAOx3 Psychiatric: interacting appropriately, not anxious, not encephalopathic ICD10 Worksheet Patient Problems: Problems Problem Status Onset Cellulitis of right leg Acute
--- NOTE | 2017-08-13 15:03 | ASMTCASEMG ---
Living Arrangements What is your living Answers: Alone arrangement? Who do you live with? Type Of Residence What kind of residence do Answers: House you live in? Discharge Plan Comments Coordination Status Comments Notes: Pt is a 87 y/o female admitted w/ right leg cellulitis. Pt is currently being followed by wound care. CM spoke w/ son, Gato P#: [phone], [facility] regarding d/c POC. Gato would like referrals to be made to the [facility]. Gato specifically did not want referrals made to [facility]. CM faxed over referrals to [facility] and [facility]. PASRR completed. CM to follow. Date Signed: 08/13/2017 03:02 PM Electronically Signed By:MICH Uribe
--- NOTE | 2017-08-13 15:03 | ASMTCASEMG ---
Living Arrangements What is your living Answers: Alone arrangement? Who do you live with? Type Of Residence What kind of residence do Answers: House you live in? Discharge Plan Comments Coordination Status Comments Notes: Pt is a 87 y/o female admitted w/ right leg cellulitis. Pt is currently being followed by wound care. CM spoke w/ son, Gato P#: [phone], [facility] regarding d/c POC. Gato would like referrals to be made to the [facility]. Gato specifically did not want referrals made to [facility]. CM faxed [facility] ref[facility] and [facility]. PASRR completed. CM to follow. Date Signed: 08/13/2017 03:02 PM Electronically Signed By:MICH Uribe
--- NOTE | 2017-08-13 15:03 | ASMTCASEMG ---
Living Arrangements What is your living Answers: Alone arrangement? Who do you live with? Type Of Residence What kind of residence do Answers: House you live in? Discharge Plan Comments Coordination Status Comments Notes: Pt is a 87 y/o female admitted w/ right leg cellulitis. Pt is currently being followed by wound care. CM spoke w/ son, Gato P#: [phone], [facility] regarding d/c POC. Gato would like referrals to be made to the [facility]. Gato specifically did not want referrals made to [facility]. CM faxed over referrals to [facility] and [facility]. PASRR completed. CM to follow. Date Signed: 08/13/2017 03:02 PM Electronically Signed By:MICH Uribe
[2017-08-13] MEDS: SERTRALINE HCL 50 MG TAB PO SCH ×2 (21:25)
[2017-08-14] MEDS: DILTIAZEM 30 MG TAB PO SCH ×6 (05:32→16:57)
--- NOTE | 2017-08-14 09:34 | PCMIDPN ---
Assessment/Plan: 1. RLE cellulitis: She is not ready to transition to oral therapy, and may require a course of IV therapy at the group home facility when she is ultimately ready to go there. (Not yet) Patient has not showered in over a month, and her toenails are in desperate need of attention. I have asked the patient's nurse to give her a thorough shower today, and to please keep her right lower extremity elevated (she has not been doing this). I also called Dr. Edmond Pearson, who will be more than happy to see this patient on Thursday to trim her toenails, as I fear this will be forgotten if we don't act now. Continue Ancef as is. She is also being followed by wound care. 2. Tinea pedis: This is subtle on the left, but evident in the web spaces on the right. Start Lotrimin twice daily. 3. Phlebitis right upper extremity: Warm packs twice daily. Subjective: Patient is watching TV. Denies diarrhea on antibiotics. Talked to her about hygiene when I was able to visualize her feet. Patient states she has not showered in over a month. Please see assessment and plan. Objective: Ancef 1 g IV q.8 hours day 5 T-max 37.1degrees Vital Signs Temp Pulse Resp BP Pulse Ox 36.6 C 90 20 124/74 H 97 08/14/17 08:00 08/14/17 08:00 08/14/17 08:00 08/14/17 08:00 08/14/17 08:00 Microbiology 08/10/17 22:15 Gram Stain - Final Leg - Swab Wound Culture - Final Staphylococcus Aureus Laboratory Results 08/12/17 18:54 08/12/17 18:54 08/13/17 08/14/17 08/15/17 05:59 05:59 05:59 Intake Total 1930 900 Output Total 1100 1300 Balance 830 -400 August 10 lower extremity ulceration: 3+ MSSA Blood cultures negative - Physical Exam General Appearance: alert, no apparent distress EENT: No thrush Respiratory: lungs clear Cardiac/Chest: systolic murmur (1/6 right lower sternal border), irregularly irregular Extremities: other (Swelling right lower extremity with pinkish erythema circumferentially and impetiginous skin sloughing throughout. Grossly over grown and gnarled toenails bilaterally. Tinea pedis web spaces of the toes particularly right foot.) ICD10 Worksheet Patient Problems: Problems Problem Status Onset Cellulitis of right leg Acute
[2017-08-14] MEDS: RIVAROXABAN 15 MG TAB PO SCH ×2 (09:44)
--- NOTE | 2017-08-14 12:31 | HOSPPROG ---
Hospitalist Progress Note Assessment/Plan: 87-year-old female presents with right lower extremity cellulitis complicated by acute atrial flutter/Afib. Now back in Afib. 1. MSSA Cellulitis. -Initially on Vancomycin, transitioned to Cefazolin on 08/12 -ID is following, no changes to abx today -transition to oral abx once ready per ID 2. Atrial flutter, new onset, initially converted back to NSR but back in Afib since yesterday. Rate (80's) is overall well controlled. She is not symptomatic -Cont PO Diltiazem -Cont Xarelto -Cards to eval. Reccs pending. Case d/w Cardiolog 3. Hypertension. Chronic, now the patient is on diltiazem, hold other home antihypertensive medication 4. Tinea Pedis: bilateral. On Lotromin (started 08/14) 5. Weakness and Deconditioning: PT/OT Diet. Regular Prophylaxis. High risk patient, on Lovenox Code. Full Disposition. continue inpatient for now Subjective: Feels about the same. Back in Afib. Not symptomatic. No CP or SOB. No leg edema. Denies palpitations. Objective: Vital Signs Temp Pulse Resp BP Pulse Ox 36.9 C 117 H 14 109/60 96 08/14/17 12:00 08/14/17 12:05 08/14/17 12:00 08/14/17 12:05 08/14/17 12:00 Microbiology 08/10/17 22:15 Gram Stain - Final Leg - Swab Wound Culture - Final Staphylococcus Aureus Laboratory Results 08/12/17 18:54 08/12/17 18:54 08/13/17 08/14/17 08/15/17 05:59 05:59 05:59 Intake Total 1930 900 Output Total 1100 1300 Balance 830 -400 - Physical Exam Constitutional: no apparent distress Eyes: PERRL, EOMI Ears, Nose, Mouth, Throat: moist mucous membranes Cardiovascular: irregularly irregular, No edema Respiratory: clear to auscultation Skin: warm Musculoskeletal: generalized weakness Neurologic: AAOx3 Psychiatric: interacting appropriately, not anxious, not encephalopathic ICD10 Worksheet Patient Problems: Problems Problem Status Onset Cellulitis of right leg Acute
[2017-08-14] MEDS: CLOTRIMAZOLE 1% 15 GM CRTUBE TP SCH ×4 (15:26→20:46)
--- NOTE | 2017-08-14 15:58 | GCON ---
[f rep st] CONSULTATION DATE OF CONSULTATION: 08/14/2017 CONSULTATION REQUESTED BY: Heladio Duran MD REASON FOR CONSULTATION: Paroxysmal atrial flutter and fibrillation. HISTORY: The patient is an 87-year-old woman with a history of hypertension and depression but no si gnificant prior cardiac history, who was admitted August 10 for right lower extremity swelling and cellulitis. She was evaluated with ultrasound, and there was no evidence of DVT. She has been rece iving intravenous antibiotic therapy. Early in her hospital course, she developed sudden onset atria l flutter with a rapid ventricular response. She was started on intravenous diltiazem and spontaneou sly returned to normal sinus rhythm. She was switched to oral diltiazem. She was also started on sy [facility] anticoagulation with Xarelto. Her TSH is normal. She did not notice her episode of atrial fl utter; however, she does report that she has occasionally noted episodes of what seems to be an accel erated heart rate at home. In the special effects specialist hours of August 13, she went back into atrial flu tter with a controlled ventricular rate. Her atrial flutter then transitioned into atrial fibrillati on. Her ventricular rate continues to be controlled on her current diltiazem dosage. She had a Holter monitor in our office in October of 2015. That study demonstrated sinus rhythm with a heart rate range of 72 to 106 BPM with an average of 82 BPM. She had a total of 1107 PACs, includ ing 2 short bursts of SVT up to 9 beats in length at a maximum rate of 146 BPM. She had a total of 8 5 PVCs. PAST MEDICAL HISTORY: Notable for hypertension and depression. FAMILY HISTORY: Noncontributory. HOME MEDICATIONS: Consist of felodipine and sertraline. ALLERGIES: No known drug allergies. SOCIAL HISTORY: She is . She lives here in [place]. She has an adult son who works as an at torney in [employer]. He frequently helps out with driving her to appointments and assisting with liz pping. She has never been a smoker. She does not consume significant amounts of alcohol. REVIEW OF SYSTEMS: Apart from lower extremity swelling and redness associated with her cellulitis, a 10-point review was negative. PHYSICAL EXAMINATION: VITAL SIGNS: Heart rate in the 80s to 90s with atrial fibrillation on the mon itor. Blood pressure 127/76. GENERAL: Well-developed, well-nourished, elderly woman, in no acute d istress. She is alert and oriented x3. HEAD AND NECK: No scleral icterus. Mucous membranes moist. Carotid pulses 2+ without bruits. No JVD. CHEST: Lung camacho clear to auscultation. CARDIAC: I rregularly irregular rhythm with normal S1, S2. No murmur appreciated. ABDOMEN: Soft, nontender, a nd nondistended with normal bowel sounds. EXTREMITIES: 2 to 3+ right lower extremity edema with sig nificant erythema and cracked skin. DIAGNOSTICS: Echocardiogram: An echocardiogram was performed earlier in her hospital stay. That st udy demonstrated normal left ventricular size. Her LV ejection fraction was normal at 62%. She had mild left atrial enlargement. She had mild mitral annular calcification with ncuro-ye-bymb mitral re gurgitation. She had moderate tricuspid regurgitation. Laboratory: Sodium 136, potassium 4.6, BUN and creatinine 17 and 0.7. CBC demonstrates a white bloo d cell count of 8.9 with hemoglobin and hematocrit 11.7 and 35.2, and platelet count 263,000. ECG: Her admission ECG demonstrated normal sinus rhythm. No Q-waves or conduction system disturbanc es. No ischemic changes. She has not had a repeat electrocardiogram. IMPRESSION: This is an 87-year-old woman with a history of hypertension. She is currently admitted with right lower extremity cellulitis. She has demonstrated both atrial flutter and atrial fibrillat ion. Her ventricular response is currently adequately controlled on low-dose oral diltiazem. She celaya s not had any significant bradycardia or signs of sick sinus syndrome or atrioventricular block. Her [id number] is 4 based on her age, gender, and hypertension. She is currently on Xarelto for strok e prophylaxis. She does not have any symptoms or physical exam signs suggestive of angina or congest giana heart failure. RECOMMENDATIONS: Would continue her low-dose diltiazem and Xarelto. Will add amiodarone, which will hopefully prompt a return to sinus rhythm. Further diagnostic and therapeutic decisions depend on h er clinical course over the next 24 hours. /[id number]/MODL
--- NOTE | 2017-08-14 15:58 | GCON ---
[f rep st] CONSULTATION DATE OF CONSULTATION: 08/14/2017 CONSULTATION REQUESTED BY: Heladio Duran MD REASON FOR CONSULTATION: Paroxysmal atrial flutter and fibrillation. HISTORY: The patient is an 87-year-old woman with a history of hypertension and depression but no si gnificant prior cardiac history, who was admitted August 10 for right lower extremity swelling and cellulitis. She was evaluated with ultrasound, and there was no evidence of DVT. She has been rece iving intravenous antibiotic therapy. Early in her hospital course, she developed sudden onset atria l flutter with a rapid ventricular response. She was started on intravenous diltiazem and spontaneou sly returned to normal sinus rhythm. She was switched to oral diltiazem. She was also started on sy [facility] anticoagulation with Xarelto. Her TSH is normal. She did not notice her episode of atrial fl utter; however, she does report that she has occasionally noted episodes of what seems to be an accel erated heart rate at home. In the voice over artist hours of August 13, she went back into atrial flu tter with a controlled ventricular rate. Her atrial flutter then transitioned into atrial fibrillati on. Her ventricular rate continues to be controlled on her current diltiazem dosage. She had a Holter monitor in our office in October of 2015. That study demonstrated sinus rhythm with a heart rate range of 72 to 106 BPM with an average of 82 BPM. She had a total of 1107 PACs, includ ing 2 short bursts of SVT up to 9 beats in length at a maximum rate of 146 BPM. She had a total of 8 5 PVCs. PAST MEDICAL HISTORY: Notable for hypertension and depression. FAMILY HISTORY: Noncontributory. HOME MEDICATIONS: Consist of felodipine and sertraline. ALLERGIES: No known drug allergies. SOCIAL HISTORY: She is . She lives here in [place]. She has an adult son who works as an at torney in [place]. He frequently helps out with driving her to appointments and assisting with liz pping. She has never been a smoker. She does not consume significant amounts of alcohol. REVIEW OF SYSTEMS: Apart from lower extremity swelling and redness associated with her cellulitis, a 10-point review was negative. PHYSICAL EXAMINATION: VITAL SIGNS: Heart rate in the 80s to 90s with atrial fibrillation on the mon itor. Blood pressure 127/76. GENERAL: Well-developed, well-nourished, elderly woman, in no acute d istress. She is alert and oriented x3. HEAD AND NECK: No scleral icterus. Mucous membranes moist. Carotid pulses 2+ without bruits. No JVD. CHEST: Lung camacho clear to auscultation. CARDIAC: I rregularly irregular rhythm with normal S1, S2. No murmur appreciated. ABDOMEN: Soft, nontender, a nd nondistended with normal bowel sounds. EXTREMITIES: 2 to 3+ right lower extremity edema with sig nificant erythema and cracked skin. DIAGNOSTICS: Echocardiogram: An echocardiogram was performed earlier in her hospital stay. That st udy demonstrated normal left ventricular size. Her LV ejection fraction was normal at 62%. She had mild left atrial enlargement. She had mild mitral annular calcification with ayowx-hs-loak mitral re gurgitation. She had moderate tricuspid regurgitation. Laboratory: Sodium 136, potassium 4.6, BUN and creatinine 17 and 0.7. CBC demonstrates a white bloo d cell count of 8.9 with hemoglobin and hematocrit 11.7 and 35.2, and platelet count 263,000. ECG: Her admission ECG demonstrated normal sinus rhythm. No Q-waves or conduction system disturbanc es. No ischemic changes. She has not had a repeat electrocardiogram. IMPRESSION: This is an 87-year-old woman with a history of hypertension. She is currently admitted with right lower extremity cellulitis. She has demonstrated both atrial flutter and atrial fibrillat ion. Her ventricular response is currently adequately controlled on low-dose oral diltiazem. She celaya s not had any significant bradycardia or signs of sick sinus syndrome or atrioventricular block. Her [id number] is 4 based on her age, gender, and hypertension. She is currently on Xarelto for strok e prophylaxis. She does not have any symptoms or physical exam signs suggestive of angina or congest giana heart failure. RECOMMENDATIONS: Would continue her low-dose diltiazem and Xarelto. Will add amiodarone, which will hopefully prompt a return to sinus rhythm. Further diagnostic and therapeutic decisions depend on h er clinical course over the next 24 hours. /[id number]/MODL
--- NOTE | 2017-08-14 15:58 | GCON ---
[f rep st] CONSULTATION DATE OF CONSULTATION: 08/14/2017 CONSULTATION REQUESTED BY: Heladio Duran MD REASON FOR CONSULTATION: Paroxysmal atrial flutter and fibrillation. HISTORY: The patient is an 87-year-old woman with a history of hypertension and depression but no si gnificant prior cardiac history, who was admitted August 10 for right lower extremity swelling and cellulitis. She was evaluated with ultrasound, and there was no evidence of DVT. She has been rece iving intravenous antibiotic therapy. Early in her hospital course, she developed sudden onset atria l flutter with a rapid ventricular response. She was started on intravenous diltiazem and spontaneou sly returned to normal sinus rhythm. She was switched to oral diltiazem. She was also started on sy [facility] anticoagulation with Xarelto. Her TSH is normal. She did not notice her episode of atrial fl utter; however, she does report that she has occasionally noted episodes of what seems to be an accel erated heart rate at home. In the saw sharpener hours of August 13, she went back into atrial flu tter with a controlled ventricular rate. Her atrial flutter then transitioned into atrial fibrillati on. Her ventricular rate continues to be controlled on her current diltiazem dosage. She had a Holter monitor in our office in October of 2015. That study demonstrated sinus rhythm with a heart rate range of 72 to 106 BPM with an average of 82 BPM. She had a total of 1107 PACs, includ ing 2 short bursts of SVT up to 9 beats in length at a maximum rate of 146 BPM. She had a total of 8 5 PVCs. PAST MEDICAL HISTORY: Notable for hypertension and depression. FAMILY HISTORY: Noncontributory. HOME MEDICATIONS: Consist of felodipine and sertraline. ALLERGIES: No known drug allergies. SOCIAL HISTORY: She is . She lives here in [place]. She has an adult son who works as an at torney in [employer]. He frequently helps out with driving her to appointments and assisting with liz pping. She has never been a smoker. She does not consume significant amounts of alcohol. REVIEW OF SYSTEMS: Apart from lower extremity swelling and redness associated with her cellulitis, a 10-point review was negative. PHYSICAL EXAMINATION: VITAL SIGNS: Heart rate in the 80s to 90s with atrial fibrillation on the mon itor. Blood pressure 127/76. GENERAL: Well-developed, well-nourished, elderly woman, in no acute d istress. She is alert and oriented x3. HEAD AND NECK: No scleral icterus. Mucous membranes moist. Carotid pulses 2+ without bruits. No JVD. CHEST: Lung camacho clear to auscultation. CARDIAC: I rregularly irregular rhythm with normal S1, S2. No murmur appreciated. ABDOMEN: Soft, nontender, a nd nondistended with normal bowel sounds. EXTREMITIES: 2 to 3+ right lower extremity edema with sig nificant erythema and cracked skin. DIAGNOSTICS: Echocardiogram: An echocardiogram was performed earlier in her hospital stay. That st udy demonstrated normal left ventricular size. Her LV ejection fraction was normal at 62%. She had mild left atrial enlargement. She had mild mitral annular calcification with ylhsh-kw-dlle mitral re gurgitation. She had moderate tricuspid regurgitation. Laboratory: Sodium 136, potassium 4.6, BUN and creatinine 17 and 0.7. CBC demonstrates a white bloo d cell count of 8.9 with hemoglobin and hematocrit 11.7 and 35.2, and platelet count 263,000. ECG: Her admission ECG demonstrated normal sinus rhythm. No Q-waves or conduction system disturbanc es. No ischemic changes. She has not had a repeat electrocardiogram. IMPRESSION: This is an 87-year-old woman with a history of hypertension. She is currently admitted with right lower extremity cellulitis. She has demonstrated both atrial flutter and atrial fibrillat ion. Her ventricular response is currently adequately controlled on low-dose oral diltiazem. She celaya s not had any significant bradycardia or signs of sick sinus syndrome or atrioventricular block. Her [id number] is 4 based on her age, gender, and hypertension. She is currently on Xarelto for strok e prophylaxis. She does not have any symptoms or physical exam signs suggestive of angina or congest giana heart failure. RECOMMENDATIONS: Would continue her low-dose diltiazem and Xarelto. Will add amiodarone, which will hopefully prompt a return to sinus rhythm. Further diagnostic and therapeutic decisions depend on h er clinical course over the next 24 hours. /[id number]/MODL
--- NOTE | 2017-08-14 16:28 | CPEKG ---
Heart Rate: 79 RR Interval: 759 QRSD Interval: 72 QT Interval: 380 QTC Interval: 436 QRS [place]: 50 T Wave [place]: 54 EKG Severity - ABNORMAL ECG - EKG Impression: ATRIAL FIBRILLATION/FLUTTER-- More characteristics of atrial fibrillation since EKG Impression: August 11, 2017, when most compatible with atrial flutter. Electronically Signed By: Og Vanessa 15-Aug-2017 07:43:27
--- NOTE | 2017-08-14 16:32 | ASMTCMCOM ---
CM Note CM Note Notes: Pt has been accepted to both the [facility] and to [facility]. CM notified son of this. Son went to tour the [facility] today and thought that it would be a fine placement. Son will tour [facility] tomorrow and touch base w/ CM regarding dispo placement. CM to follow. Date Signed: 08/14/2017 04:31 PM Electronically Signed By:MICH Uribe
--- NOTE | 2017-08-14 16:32 | ASMTCMCOM ---
CM Note CM Note Notes: Pt has been accepted to both the [facility] and to [facility]. CM notified son of this. Son went to tour the [facility] today and thought that it would be a fine placement. Son will tour [facility] tomorrow and touch base w/ CM regarding dispo placement. CM to follow. Date Signed: 08/14/2017 04:31 PM Electronically Signed By:MICH Uribe
--- NOTE | 2017-08-14 16:32 | ASMTCMCOM ---
CM Note CM Note Notes: Pt has been accepted to both the [facility] and to [facility]. CM notified son of this. Son went to tour the [facility] today and thought that it would be a fine placement. Son will tour [facility] tomorrow and touch base w/ CM regarding dispo placement. CM to follow. Date Signed: 08/14/2017 04:31 PM Electronically Signed By:MICH Uribe
[2017-08-14] MEDS: AMIODARONE HCL 200 MG TAB PO SCH ×2 (20:46)
[2017-08-14] MEDS: SERTRALINE HCL 50 MG TAB PO SCH ×2 (20:46)
[2017-08-15] MEDS: DILTIAZEM 30 MG TAB PO SCH ×10 (00:53→23:55)
[2017-08-15 04:24] LABS: PLATELET COUNT 285 10^3/uL (150-400)
[2017-08-15] MEDS: RIVAROXABAN 15 MG TAB PO SCH ×2 (09:29)
[2017-08-15] MEDS: AMIODARONE HCL 200 MG TAB PO SCH ×4 (09:29→20:04)
[2017-08-15] MEDS: CLOTRIMAZOLE 1% 15 GM CRTUBE TP SCH ×4 (09:29→20:04)
--- NOTE | 2017-08-15 10:35 | SOAPPROG ---
SOAP Progress Note Assessment/Plan: Assessment: 87-year-old female currently admitted with cellulitis. She is in atrial fibrillation with a controlled ventricular response on a combination of diltiazem. She was started on amiodarone yesterday by Dr. Vasques. She is on systemic anticoagulation with Xarelto. She is currently asymptomatic. Echocardiogram is benign. Plan: 1. Continue her current medications. 2. We can reassess her as an outpatient. Depending how she is doing after she is treated with respect to his cellulitis we may consider cardioversion. 3. We will follow along. 08/15/17 10:33 Subjective: The patient was seen and examined. The dictated consult by Dr. Vasques was reviewed. Today, she states that she is feeling well. She has no palpitations. She denies dyspnea. On telemetry she remains in atrial fibrillation with a controlled ventricular response. She is on systemic anticoagulation with Xarelto. Objective: Vital Signs Temp Pulse Resp BP Pulse Ox 36.9 C 85 16 138/96 H 94 08/15/17 07:15 08/15/17 07:15 08/15/17 07:15 08/15/17 07:15 08/15/17 07:15 Laboratory Results 08/15/17 04:06 08/15/17 04:06 08/14/17 08/15/17 08/16/17 05:59 05:59 05:59 Intake Total 900 1270 Output Total 1300 1000 100 Balance -400 270 -100 Physical Exam - Physical Exam General Appearance: WD/WN, no apparent distress Neck: non-tender, full range of motion Respiratory: lungs clear, No crackles, No rales, No rhonchi Cardiac/Chest: irregularly irregular Peripheral Pulses: 2+: carotid (R), carotid (L) Abdomen: non-tender Rectal: deferred Neuro/Psych: alert, oriented x 3 ICD10 Worksheet Patient Problems: Problems Problem Status Onset Cellulitis of right leg Acute
--- NOTE | 2017-08-15 12:13 | HOSPPROG ---
Hospitalist Progress Note Assessment/Plan: 87-year-old female presents with right lower extremity cellulitis complicated by acute atrial flutter/Afib. Now back in Afib. Stable overall. 1. MSSA Cellulitis. -Initially on Vancomycin, transitioned to Cefazolin on 08/12 -ID is following, no changes to abx today -transition to oral abx once ready per ID -duration per ID 2. Atrial flutter, new onset, initially converted back to NSR but back in Afib since yesterday. Rate (80's) is overall well controlled. She is not symptomatic -Cont PO Diltiazem -Cont Xarelto -Amiodarone started on 08/14, continue -Cards following. Consider cardioversion possibly as an outpatient 3. Hypertension. Chronic, now the patient is on diltiazem, hold other home antihypertensive medication 4. Tinea Pedis: bilateral. On Lotromin (started 08/14) 5. Weakness and Deconditioning: PT/OT Diet. Regular Prophylaxis. High risk patient, on Lovenox Code. Full Disposition. continue inpatient for now Subjective: No O/N events. Still in Afib Objective: Vital Signs Temp Pulse Resp BP Pulse Ox 37.1 C 105 H 18 134/62 H 94 08/15/17 11:18 08/15/17 11:53 08/15/17 11:18 08/15/17 11:53 08/15/17 11:18 Laboratory Results 08/15/17 04:06 08/15/17 04:06 08/14/17 08/15/17 08/16/17 05:59 05:59 05:59 Intake Total 900 1270 Output Total 1300 1000 100 Balance -400 270 -100 - Physical Exam Constitutional: no apparent distress Eyes: PERRL Ears, Nose, Mouth, Throat: moist mucous membranes Cardiovascular: regular rate and rhythym Respiratory: no respiratory distress, no rales or rhonchi, clear to auscultation Gastrointestinal: normoactive bowel sounds Neurologic: AAOx3 Psychiatric: interacting appropriately, not anxious, not encephalopathic ICD10 Worksheet Patient Problems: Problems Problem Status Onset Cellulitis of right leg Acute
--- NOTE | 2017-08-15 15:41 | ASMTCMCOM ---
CM Note CM Note Notes: Today Pt's son Gato confirmed that he visited SNFs and chooses [facility] for Pt. Toña from [facility] states auth is completed if Pt. is discharged today or Thursday. CM to follow for d/c POC. Current plan: SNF d/c to [facility] when ready. Date Signed: 08/15/2017 03:40 PM Electronically Signed By:Araseli Ruth LCSW
--- NOTE | 2017-08-15 15:41 | ASMTCMCOM ---
CM Note CM Note Notes: Today Pt's son Gato confirmed that he visited SNFs and chooses [facility] for Pt. Toña from [facility] states auth is completed if Pt. is discharged today or Thursday. CM to follow for d/c POC. Current plan: SNF d/c to [facility] when ready. Date Signed: 08/15/2017 03:40 PM Electronically Signed By:Araseli Ruth LCSW
--- NOTE | 2017-08-15 15:41 | ASMTCMCOM ---
CM Note CM Note Notes: Today Pt's son Gato confirmed that he visited SNFs and chooses [facility] for Pt. Toña from [facility] states auth is completed if Pt. is discharged today or Thursday. CM to follow for d/c POC. Current plan: SNF d/c to [facility] when ready. Date Signed: 08/15/2017 03:40 PM Electronically Signed By:Araseli Ruth LCSW
--- NOTE | 2017-08-15 19:28 | PCMIDPN ---
Assessment/Plan: Assessment/Plan: * Right lower extremity cellulitis: Continues with significant residual cellulitis. This necessitates continued use of IV antibiotic therapy in the form of cefazolin. Anticipate this will be slow to resolve and likely will require a course of IV antibiotic treatment. Continue elevation. 08/15/17 19:25 Subjective: Patient complains of right lower extremity pain. Objective: Vital Signs Temp Pulse Resp BP Pulse Ox 36.6 C 76 16 110/69 94 08/15/17 15:11 08/15/17 15:11 08/15/17 15:11 08/15/17 15:11 08/15/17 15:11 Laboratory Results 08/15/17 04:06 08/15/17 04:06 08/14/17 08/15/17 08/16/17 05:59 05:59 05:59 Intake Total 900 1270 490 Output Total 1300 1000 350 Balance -400 270 140 Cefazolin # 6 Blood cultures x2 no growth Wound culture MSSA - Physical Exam General Appearance: alert, no apparent distress Extremities: inflammation (Right lower extremity with circumferential erythema and scaly skin from below knee to ankle) Skin: other (Severe onychomycosis of the right foot) ICD10 Worksheet Patient Problems: Problems Problem Status Onset Cellulitis of right leg Acute
[2017-08-15] MEDS: SERTRALINE HCL 50 MG TAB PO SCH ×2 (20:04)
[2017-08-16] MEDS: DILTIAZEM 30 MG TAB PO SCH ×8 (06:19→22:56)
[2017-08-16] MEDS: RIVAROXABAN 15 MG TAB PO SCH ×2 (07:33)
[2017-08-16] MEDS: AMIODARONE HCL 200 MG TAB PO SCH ×4 (07:33→19:41)
--- NOTE | 2017-08-16 10:30 | SOAPPROG ---
CHARIS Progress Note Assessment/Plan: Assessment: 87-year-old female currently admitted with cellulitis. She is in atrial fibrillation with a controlled ventricular response on a combination of diltiazem. She was started on amiodarone yesterday by Dr. Vasques. She is on systemic anticoagulation with Xarelto. She is currently asymptomatic. Echocardiogram is benign. Plan: Continue current Rx. Will sign off. F/U as outpatient. Will reassess rhythm and symptoms and consider CV. 08/16/17 10:29 Subjective: Today no CV complaints. On tele in AFIB with reasonable rate control. Objective: Vital Signs Temp Pulse Resp BP Pulse Ox 36.9 C 75 17 130/68 H 95 08/16/17 08:00 08/16/17 08:00 08/16/17 08:00 08/16/17 08:00 08/16/17 08:00 Laboratory Results 08/15/17 04:06 08/15/17 04:06 08/15/17 08/16/17 08/17/17 05:59 05:59 05:59 Intake Total 1270 805 60 Output Total 1000 850 100 Balance 270 -45 -40 Physical Exam - Physical Exam General Appearance: WD/WN, no apparent distress Neck: non-tender Respiratory: lungs clear Cardiac/Chest: regular rate, rhythm Peripheral Pulses: 2+: carotid (R), carotid (L) ICD10 Worksheet Patient Problems: Problems Problem Status Onset Cellulitis of right leg Acute
[2017-08-16] MEDS: CLOTRIMAZOLE 1% 15 GM CRTUBE TP SCH ×4 (11:43→19:42)
--- NOTE | 2017-08-16 13:49 | HOSPPROG ---
Hospitalist Progress Note Assessment/Plan: 87-year-old female presents with right lower extremity cellulitis complicated by acute atrial flutter/Afib. Now back in Afib. Stable overall. 1. MSSA Cellulitis. -Initially on Vancomycin, transitioned to Cefazolin on 08/12 -ID is following, no changes to abx today -transition to oral abx once ready per ID -abx duration per ID 2. Atrial flutter, new onset, initially converted back to NSR. Rate is controlled. She is not symptomatic -Cont PO Diltiazem -Cont Xarelto -Amiodarone started on 08/14, continue -Cards signed off. Consider cardioversion possibly as an outpatient 3. Hypertension. Chronic, now the patient is on diltiazem, hold other home antihypertensive medication 4. Tinea Pedis: bilateral. On Lotromin (started 08/14) 5. Weakness and Deconditioning: PT/OT Diet. Regular Prophylaxis. High risk patient, on Lovenox Code. Full Disposition. continue inpatient for now Subjective: No O/N events. No new complaints. Denies CP or SOB or N/V. Working with PT Objective: Vital Signs Temp Pulse Resp BP Pulse Ox 36.7 C 92 17 109/51 L 93 08/16/17 12:00 08/16/17 12:00 08/16/17 12:00 08/16/17 12:00 08/16/17 12:00 Laboratory Results 08/15/17 04:06 08/15/17 04:06 08/15/17 08/16/17 08/17/17 05:59 05:59 05:59 Intake Total 1270 805 60 Output Total 1000 850 100 Balance 270 -45 -40 - Physical Exam Constitutional: chronically ill appearing Eyes: PERRL, EOMI Ears, Nose, Mouth, Throat: moist mucous membranes, hearing normal Cardiovascular: regular rate and rhythym Respiratory: no respiratory distress, no rales or rhonchi, clear to auscultation Gastrointestinal: normoactive bowel sounds, soft, non-tender abdomen Skin: warm Neurologic: AAOx3 Psychiatric: interacting appropriately, not anxious, not encephalopathic ICD10 Worksheet Patient Problems: Problems Problem Status Onset Cellulitis of right leg Acute
--- NOTE | 2017-08-16 16:57 | GCON ---
[f rep st] CONSULTATION PODIATRIC CONSULTATION DATE OF CONSULTATION: 08/16/2017 REQUESTING PHYSICIAN: Araceli Sams MD. REASON FOR CONSULTATION: Painful long toenails. HISTORY OF PRESENT ILLNESS: The patient is an 87-year-old, white male who was seen at room 216 in [facility]. She is in bed. She relates that she was admitted August 10 for a right low er extremity cellulitis. She relates that she believes she is going to be released Thursday to a [facility] nursing facility. She relates that she has long painful toenails that she has been unable to cut herself for quite some time. She relates that she usually soaks them before trying to do so. PAST MEDICAL HISTORY: Remarkable for hypertension and depression. FAMILY HISTORY: Noncontributory. MEDICATIONS: Sertraline and felodipine. ALLERGIES: NKDA. SOCIAL HISTORY: Patient lives in [place], is retired from the [employer]. She is a wido w. She denies smoking and does occasionally utilize alcohol. REVIEW OF SYSTEMS: Apart from lower extremity soft tissue swelling and cellulitis is unremarkable. PHYSICAL EXAMINATION: GENERAL APPEARANCE: Well-nourished, well-developed 87-year-old, white female, alert and oriented x3. LOWER EXTREMITIES: Vascular: Dorsalis pedis, posterior tibial pulses are p alpable though decreased bilaterally. Capillary refill to the hallux is less than 5 seconds. Hair g rowth is absent. There is edema occurring in the right lower extremity compared to the contralateral side. NEUROLOGIC: Achilles and patellar reflex 2+ bilaterally. Muscle strength 5/5. Vibratory an d sharp/dull are intact and symmetrical as tested by 5.07 monofilament wire. Dermatologically tone t exture and turgor of the skin are all within normal limits. There are no open lesions in the foot. There is a dressing on the right lower extremity that is not removed at this time. Her nails are not ed to be substantially elongated, dystrophic and have subungual debris present bilateral. They are v magda painful to touch. Some nails are in excess of 1 inch long. They are curling back on themselves in some cases and digging into other toes as well. There is hyperkeratotic tissue occurring at the d istal tips of the digits on multiple toes bilateral. There are no signs of erythema or open lesions in the feet at this point. MUSCULOSKELETAL: Range of motion of the ankle and subtalar joint within normal limits and without pain or crepitus. IMPRESSION: 1. Onychomycosis. 2. Ingrowing toenails bilateral. 3. Hyperkeratosis bilateral. PLAN: Treatment today consisted of evaluation of the area. The patient decided to have the nails an d calluses debrided. The debridement of the hyperkeratotic tissue was performed with a 15 blade. I was unable to take the nails back as far as I would like as they were just too sensitive for her give n the fact that it has been years since this was taken care of for her. I recommended that she get o n a regular schedule to have this performed every 3 or 4 months. She was understanding. /[id number]/MODL
--- NOTE | 2017-08-16 16:57 | GCON ---
[f rep st] CONSULTATION PODIATRIC CONSULTATION DATE OF CONSULTATION: 08/16/2017 REQUESTING PHYSICIAN: Araceli Sams MD. REASON FOR CONSULTATION: Painful long toenails. HISTORY OF PRESENT ILLNESS: The patient is an 87-year-old, white male who was seen at room 216 in [facility]. She is in bed. She relates that she was admitted August 10 for a right low er extremity cellulitis. She relates that she believes she is going to be released Thursday to a [facility] nursing facility. She relates that she has long painful toenails that she has been unable to cut herself for quite some time. She relates that she usually soaks them before trying to do so. PAST MEDICAL HISTORY: Remarkable for hypertension and depression. FAMILY HISTORY: Noncontributory. MEDICATIONS: Sertraline and felodipine. ALLERGIES: NKDA. SOCIAL HISTORY: Patient lives in [place], is retired from the [employer]. She is a wido w. She denies smoking and does occasionally utilize alcohol. REVIEW OF SYSTEMS: Apart from lower extremity soft tissue swelling and cellulitis is unremarkable. PHYSICAL EXAMINATION: GENERAL APPEARANCE: Well-nourished, well-developed 87-year-old, white female, alert and oriented x3. LOWER EXTREMITIES: Vascular: Dorsalis pedis, posterior tibial pulses are p alpable though decreased bilaterally. Capillary refill to the hallux is less than 5 seconds. Hair g rowth is absent. There is edema occurring in the right lower extremity compared to the contralateral side. NEUROLOGIC: Achilles and patellar reflex 2+ bilaterally. Muscle strength 5/5. Vibratory an d sharp/dull are intact and symmetrical as tested by 5.07 monofilament wire. Dermatologically tone t exture and turgor of the skin are all within normal limits. There are no open lesions in the foot. There is a dressing on the right lower extremity that is not removed at this time. Her nails are not ed to be substantially elongated, dystrophic and have subungual debris present bilateral. They are v magda painful to touch. Some nails are in excess of 1 inch long. They are curling back on themselves in some cases and digging into other toes as well. There is hyperkeratotic tissue occurring at the d istal tips of the digits on multiple toes bilateral. There are no signs of erythema or open lesions in the feet at this point. MUSCULOSKELETAL: Range of motion of the ankle and subtalar joint within normal limits and without pain or crepitus. IMPRESSION: 1. Onychomycosis. 2. Ingrowing toenails bilateral. 3. Hyperkeratosis bilateral. PLAN: Treatment today consisted of evaluation of the area. The patient decided to have the nails an d calluses debrided. The debridement of the hyperkeratotic tissue was performed with a 15 blade. I was unable to take the nails back as far as I would like as they were just too sensitive for her give n the fact that it has been years since this was taken care of for her. I recommended that she get o n a regular schedule to have this performed every 3 or 4 months. She was understanding. /[id number]/MODL
--- NOTE | 2017-08-16 19:19 | PCMIDPN ---
Assessment/Plan: Assessment/Plan: * Right lower extremity cellulitis: Continued clinical improvement with cefazolin. More desquamation of skin beginning. If shows continued improvement , think likely can transition to senior care facility to complete care with anticipated approximately 1 more week of cefazolin. Continue lower extremity elevation. 08/16/17 19:17 Subjective: Patient with less right lower extremity pain. Objective: Vital Signs Temp Pulse Resp BP Pulse Ox 36.6 C 86 17 143/89 H 94 08/16/17 15:28 08/16/17 18:19 08/16/17 15:28 08/16/17 18:19 08/16/17 15:28 Laboratory Results 08/15/17 04:06 08/15/17 04:06 08/15/17 08/16/17 08/17/17 05:59 05:59 05:59 Intake Total 1270 805 150 Output Total 1000 850 100 Balance 270 -45 50 Cefazolin # 7 Blood cultures x2 no growth - Physical Exam General Appearance: alert, no apparent distress EENT: No thrush Extremities: inflammation (Erythema over right lower extremity persists with increased desquamation of skin; tenderness decreased; warmth present) Abdomen: non-tender, No distended Lymphatic: other (No lymphangitis in right lower extremity) ICD10 Worksheet Patient Problems: Problems Problem Status Onset Cellulitis of right leg Acute
--- NOTE | 2017-08-16 19:19 | PCMIDPN ---
Assessment/Plan: Assessment/Plan: * Right lower extremity cellulitis: Continued clinical improvement with cefazolin. More desquamation of skin beginning. If shows continued improvement , think likely can transition to [facility] facility to complete care with anticipated approximately 1 more week of cefazolin. Continue lower extremity elevation. 08/16/17 19:17 Subjective: Patient with less right lower extremity pain. Objective: Vital Signs Temp Pulse Resp BP Pulse Ox 36.6 C 86 17 143/89 H 94 08/16/17 15:28 08/16/17 18:19 08/16/17 15:28 08/16/17 18:19 08/16/17 15:28 Laboratory Results 08/15/17 04:06 08/15/17 04:06 08/15/17 08/16/17 08/17/17 05:59 05:59 05:59 Intake Total 1270 805 150 Output Total 1000 850 100 Balance 270 -45 50 Cefazolin # 7 Blood cultures x2 no growth - Physical Exam General Appearance: alert, no apparent distress EENT: No thrush Extremities: inflammation (Erythema over right lower extremity persists with increased desquamation of skin; tenderness decreased; warmth present) Abdomen: non-tender, No distended Lymphatic: other (No lymphangitis in right lower extremity) ICD10 Worksheet Patient Problems: Problems Problem Status Onset Cellulitis of right leg Acute
--- NOTE | 2017-08-16 19:19 | PCMIDPN ---
Assessment/Plan: Assessment/Plan: * Right lower extremity cellulitis: Continued clinical improvement with cefazolin. More desquamation of skin beginning. If shows continued improvement , think likely can transition to group home facility to complete care with anticipated approximately 1 more week of cefazolin. Continue lower extremity elevation. 08/16/17 19:17 Subjective: Patient with less right lower extremity pain. Objective: Vital Signs Temp Pulse Resp BP Pulse Ox 36.6 C 86 17 143/89 H 94 08/16/17 15:28 08/16/17 18:19 08/16/17 15:28 08/16/17 18:19 08/16/17 15:28 Laboratory Results 08/15/17 04:06 08/15/17 04:06 08/15/17 08/16/17 08/17/17 05:59 05:59 05:59 Intake Total 1270 805 150 Output Total 1000 850 100 Balance 270 -45 50 Cefazolin # 7 Blood cultures x2 no growth - Physical Exam General Appearance: alert, no apparent distress EENT: No thrush Extremities: inflammation (Erythema over right lower extremity persists with increased desquamation of skin; tenderness decreased; warmth present) Abdomen: non-tender, No distended Lymphatic: other (No lymphangitis in right lower extremity) ICD10 Worksheet Patient Problems: Problems Problem Status Onset Cellulitis of right leg Acute
[2017-08-16] MEDS: SERTRALINE HCL 50 MG TAB PO SCH ×2 (19:42)
[2017-08-17] MEDS: DILTIAZEM 30 MG TAB PO SCH ×6 (05:38→17:30)
[2017-08-17] MEDS: RIVAROXABAN 15 MG TAB PO SCH ×2 (08:35)
[2017-08-17] MEDS: AMIODARONE HCL 200 MG TAB PO SCH ×4 (08:35→20:19)
[2017-08-17] MEDS: CLOTRIMAZOLE 1% 15 GM CRTUBE TP SCH ×4 (08:37→20:19)
--- NOTE | 2017-08-17 13:27 | HOSPPROG ---
Hospitalist Progress Note Assessment/Plan: DIAGNOSES: -cellulitis of the left lower leg and foot, MSSA on cultures -this is my 1st evaluation of the patient at the bedside, and with the nurse who saw the patient at near the time of admission and the patient it sounds like there may not be much change in the appearance of her leg and foot. Her fever has gone away. No current sign Of abscess or any problematic open areas or necrosis. -weakness, gait instability, and impaired ambulation safety, deconditioning -new onset a flutter, currently controlled on amiodarone, diltiazem and anticoagulant PLANS: At this point the patient has resolved fever but with her ongoing significant cellulitis all [address] Roland or the other folks from Infectious Disease before determining how close we are to being able to discharge. I think we need to squeeze her leg a little better is quite edematous and that will make a difference in terms of resolving the cellulitis. She has now had 7 days of antibiotic for her cellulitis here in the hospital SUBJECTIVE: Still with the same soreness in her leg that she had when she got here. 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 She has remarkable right red cellulitis from the high able low calf area down to distal foot, with several areas of peeling dry skin but no areas of ulceration, necrosis, or abscess and does not appear to be a joint infection that I can see iv site ok Objective: Vital Signs Temp Pulse Resp BP Pulse Ox 36.6 C 91 18 138/60 H 97 08/17/17 12:11 08/17/17 12:11 08/17/17 12:11 08/17/17 12:11 08/17/17 12:11 Laboratory Results 08/15/17 04:06 08/15/17 04:06 08/16/17 08/17/17 08/18/17 06:59 06:59 06:59 Intake Total 865 565 Output Total 950 300 Balance -85 265 ICD10 Worksheet Patient Problems: Problems Problem Status Onset Cellulitis of right leg Acute
--- NOTE | 2017-08-17 18:15 | PCMIDPN ---
Assessment/Plan: Assessment: RLE cellulitis -- patient is clinically improved. RLE is wrapped in an YOLA compressive wrap which is probably improving matters. Will continue the cefazolin and if improved tomorrow can arrange for completion of 7-10 days of treatment at a SNF. Plan: 1) Continue IV cefazolin. 2) Evaluate status of leg tomorrow and OK with SNF transfer for completion of therapy. 08/17/17 21:55 Subjective: Patient is resting in her bed in her room. She notes that her compressive dressings have been changed a couple of hours ago. She thinks that her leg has been looking smaller and less red. No fevers or chills. Objective: cefazolin #8 Vital Signs Temp Pulse Resp BP Pulse Ox 36.8 C 100 14 159/89 H 95 08/17/17 16:00 08/17/17 17:30 08/17/17 16:00 08/17/17 17:30 08/17/17 16:00 Laboratory Results 08/15/17 04:06 08/15/17 04:06 08/16/17 08/17/17 08/18/17 05:59 05:59 05:59 Intake Total 805 625 Output Total 850 400 150 Balance -45 225 -150 - Physical Exam General Appearance: WD/WN, alert, no apparent distress, non-toxic Respiratory: lungs clear, normal breath sounds, No respiratory distress Cardiac/Chest: regular rate, rhythm, No tachycardia Extremities: non-tender, swelling, erythema, No normal inspection Skin: normal color, warm/dry, No rash Neuro/Psych: alert, normal mood/affect, oriented x 3 ICD10 Worksheet Patient Problems: Problems Problem Status Onset Cellulitis of right leg Acute
[2017-08-17] MEDS: SERTRALINE HCL 50 MG TAB PO SCH ×2 (20:19)
[2017-08-18] MEDS: DILTIAZEM 30 MG TAB PO SCH ×6 (06:11→11:28)
[2017-08-18] MEDS: RIVAROXABAN 15 MG TAB PO SCH ×2 (08:30)
[2017-08-18] MEDS: CLOTRIMAZOLE 1% 15 GM CRTUBE TP SCH ×2 (08:30)
[2017-08-18] MEDS: AMIODARONE HCL 200 MG TAB PO SCH ×2 (08:30)
--- NOTE | 2017-08-18 09:24 | PCMIDPN ---
Assessment/Plan: # R LE cellulitis with associated wound showing MSSA, marked improvement, residual pinkness RLE like inflammation from venous insufficiency --ok to change to PO Keflex 500mg PO TID for 4 more days --dc cefazolin --continue elevation of RLE and compression, appreciate help from wound healing team meds, antibiotics # 9 Cefazolin 1 g IV Q 8 Microbiology 08/10 blood cultures (2): Neg 08/10 wound culture: MSSA US RLE: DVT negative 08/10 DVT Subjective: frustrated about having to keep her leg elevated Objective: Vital Signs Temp Pulse Resp BP Pulse Ox 36.9 C 75 14 150/86 H 97 08/18/17 07:18 08/18/17 07:18 08/18/17 07:18 08/18/17 07:18 08/18/17 07:18 Laboratory Results 08/15/17 04:06 08/15/17 04:06 08/17/17 08/18/17 08/19/17 05:59 05:59 05:59 Intake Total 625 800 Output Total 400 150 25 Balance 225 650 -25 General Appearance: alert, no apparent distress Respiratory: lungs clear, No accessory muscle use Cardiac/Chest: regular rate, rhythm Extremities: much improved RLE swelling ; pinkness present in stocking distribution R LE ; skin sloughing resolved. Abdomen: non-tender, soft Skin: pallor, No rash Neuro/Psych: alert, normal mood/affect, oriented x 3 ICD10 Worksheet Patient Problems: Problems Problem Status Onset Cellulitis of right leg Acute
[2017-08-18] MEDS ORDERED: CEPHALEXIN 500 MG CAP PO SCH ×2 (09:30)
--- NOTE | 2017-08-18 09:38 | PDIAF ---
- Diagnosis Code Status: Full Code - Medication Management Discharge Medications: Medications to Continue on Transfer Sertraline HCl [Zoloft 50mg (*)] 50 mg PO HS 08/10/17 [Last Taken Unknown] Amiodarone HCl 200 mg PO DAILY #1 tablet 08/18/17 [Last Taken Unknown] Amiodarone HCl [Pacerone (*)] 200 mg PO BID tab 08/18/17 [Last Taken Unknown] Cephalexin [Keflex (*)] 500 mg PO Q6H #28 cap 08/18/17 [Last Taken Unknown] Clotrimazole 1% [Lotrimin 1%] 1 beto TP BID cream 08/18/17 [Last Taken Unknown] Diltiazem HCl [Diltiazem 24Hr Cd] 120 mg PO DAILY #1 cap.er.24h 08/18/17 [Last Taken Unknown] Rivaroxaban [Xarelto 15mg (*)] 15 mg PO DAILY tab 08/18/17 [Last Taken Unknown] Discharge Medications: Refer to the Discharge Home Medication list for PRN reason. - Orders Diet Recommendation: sodium restricted Diet Texture: Regular Texture Diet Wound Care Instructions: 1) Cleanse wound with NS and gauze. 2) Skin prep loren wound skin. Cover weepy/slough-filled areas on anterior/medial aspect w/ Iodoflex. Please cut to fit the wound bed (slough) only without. overlapping onto skin. Remove netting from one side of Iodoflex and place this side on the wound bed. Steri strip in place. 3) Cover Iodoflex with super absorbent pad and wrap with Kerlix. Additional: Keep R foot and ankle elevated when not ambulating; keep compression stocking on as much as possible. Follow up at [facility] in early September. Follow up at [facility] in 2-4 weeks - Labs/Radiology BMP Date: 08/25/17 - Follow Up Care Current Providers and Referrals: Oleg Schilling MD [Primary Care Provider] - As per Instructions Terrance Vasques MD [Medical Doctor] - (Follow up appt. set up for you with DR. Vasques August 21, 2017Thursday @ 12:45 [facility]. Thank you.)
--- NOTE | 2017-08-18 09:38 | PDIAF ---
- Diagnosis Code Status: Full Code - Medication Management Discharge Medications: Medications to Continue on Transfer Sertraline HCl [Zoloft 50mg (*)] 50 mg PO HS 08/10/17 [Last Taken Unknown] Amiodarone HCl 200 mg PO DAILY #1 tablet 08/18/17 [Last Taken Unknown] Amiodarone HCl [Pacerone (*)] 200 mg PO BID tab 08/18/17 [Last Taken Unknown] Cephalexin [Keflex (*)] 500 mg PO Q6H #28 cap 08/18/17 [Last Taken Unknown] Clotrimazole 1% [Lotrimin 1%] 1 beto TP BID cream 08/18/17 [Last Taken Unknown] Diltiazem HCl [Diltiazem 24Hr Cd] 120 mg PO DAILY #1 cap.er.24h 08/18/17 [Last Taken Unknown] Rivaroxaban [Xarelto 15mg (*)] 15 mg PO DAILY tab 08/18/17 [Last Taken Unknown] Discharge Medications: Refer to the Discharge Home Medication list for PRN reason. - Orders Diet Recommendation: sodium restricted Diet Texture: Regular Texture Diet Wound Care Instructions: 1) Cleanse wound with NS and gauze. 2) Skin prep loren wound skin. Cover weepy/slough-filled areas on anterior/medial aspect w/ Iodoflex. Please cut to fit the wound bed (slough) only without. overlapping onto skin. Remove netting from one side of Iodoflex and place this side on the wound bed. Steri strip in place. 3) Cover Iodoflex with super absorbent pad and wrap with Kerlix. Additional: Keep R foot and ankle elevated when not ambulating; keep compression stocking on as much as possible. Follow up at [facility] clinic in early September. Follow up at [facility] in 2-4 weeks - Labs/Radiology BMP Date: 08/25/17 - Follow Up Care Current Providers and Referrals: Oleg Schilling MD [Primary Care Provider] - As per Instructions Terrance Vasques MD [Medical Doctor] - (Follow up appt. set up for you with DR. Vasques August 21, 2017Thursday @ 12:45 [facility]. Thank you.)
--- NOTE | 2017-08-18 09:43 | PDDCSUM ---
Discharge Summary Discharge Summary: DISCHARGE DIAGNOSES: -cellulitis of right leg and foot, with chronic stasis edema and suspected venous insufficiency in the right leg -methicillin sensitive Staph aureus bacteremia -new onset atrial flutter/atrial fibrillation, paroxysmal, now on anticoagulation -deconditioning and gait instability with increased fall risk -suspected mild cognitive impairment CONSULTANTS: Dr. Terrance Vasques [facility] Dr. Og Roland and Cynid Camp of infectious disease PROCEDURES: Echocardiogram HOSPITAL COURSE SUMMARY: This patient presented with febrile illness with cellulitis of her right leg and foot in the setting of chronic stasis edema of the leg. She was treated with antibiotics and cultures were obtained which did grow methicillin sensitive Staph aureus. She responded well that initially vancomycin but really was primarily her fever that improved that. She switched to Ancef and continued to have significant cellulitis without much improvement. We then at did further diuresis and elevation of the leg and compression of the leg and this resulted with decreased edema in a rapid improvement in her cellulitis. There is no evidence of abscess or tissue necrosis. There were no open wounds. At this point is felt the patient can switch to oral antibiotics. She is being fitted for compression sleeve for her leg and is instructed to be using this long-term The patient also had atrial flutter and atrial fibrillation here which is a new problem for her. She was placed on amiodarone diltiazem and anticoagulant and has done well with that. At this point she is in a rate controlled atrial fibrillation and we are hoping for her to eventually converted to sinus rhythm. She will follow up with Dr. Terrance Vasques for this and consider whether to continue amiodarone or not and to consider possible need for cardioversion. Plans to have him look at her in 4 weeks in clinic. There was no evidence of ischemia here. In addition the patient also have some gait instability. She is fairly deconditioned. For this reason she will be transferred from here to custodial facility for ongoing physical therapy rehabilitation. There was some evidence of suspected mild cognitive impairment which appeared chronic as well. This will need to be taken into account as she eventually look start going back home and looking at her living situation PENDING TEST RESULTS: None MEDICATION CHANGES: Addition of Keflex for 1 week further, amiodarone 200 mg twice daily for a week then 200 mg daily Also addition of diltiazem 120 mg daily and Xarelto 15 mg daily FOLLOW-UP PLAN: At wound Care Clinic in 3-[address] Terrance Vasques in 4 weeks Greater than 35 minutes bedside and care coordination time today
--- NOTE | 2017-08-18 10:14 | WOCRNPDOC ---
WOCRN Advanced Assessment Note - Skin Integrity Problem, Advanced Assess Right Leg Dressing Type: Jef, Mepilex Dressing Description: Clean/Dry, Intact Exudate Amount: None Integumentary Issue Intervention: Dressing Removed, Lotion/Cream Applied Klaudia Wound Tissue: Erythema, Swollen, Venous Dermatitis, Thin, Xerotic Klaudia Wound Swelling: Moderate Wound Bed Color: [place] Wound Bed Constitution: Granulation Tissue Site Odor: Slight Skin Integrity Problem Comment: Right leg unwrapped with TOMY Watkins revealing very dry, flaky skin. Leg cleansed with foaming cleanser and warm washcloths, removing as much dry skin as possible. There remains a small partial thickness opening on the medial aspect of the leg but it is no longer moist and draining. Atrac-Tane cream applied to lower leg. Now that the leg is no longer weeping, we discussed compression. Patient has not been tolerant of compression in the past but is open to the idea at this time. Benefits explained and affirmed by Dr. Buchanan. Recommend size F at this time, provideing a low level of compression in hopes that patient will tolerate. Wound care will follow up early next week.
--- NOTE | 2017-08-18 11:07 | ASMTCMCOM ---
CM Note CM Note Notes: 08/18/2017 Case Management Note Pt to d/c to [facility]. Transportation arranged by [facility] for 1300 pickup; wheelchair with O2. Faxed final d/c paperwork. RN to call report. Date Signed: 08/18/2017 11:06 AM Electronically Signed By:Smiley Whitfield RN
--- NOTE | 2017-08-18 11:07 | ASMTCMCOM ---
CM Note CM Note Notes: 08/18/2017 Case Management Note Pt to d/c to [facility]. Transportation arranged by [facility] for 1300 pickup; wheelchair with O2. Faxed final d/c paperwork. RN to call report. Date Signed: 08/18/2017 11:06 AM Electronically Signed By:Smiley Whitfield RN
--- NOTE | 2017-08-18 11:07 | ASMTCMCOM ---
CM Note CM Note Notes: 08/18/2017 Case Management Note Pt to d/c to [facility]. Transportation arranged by [facility] for 1300 pickup; wheelchair with O2. Faxed final d/c paperwork. RN to call report. Date Signed: 08/18/2017 11:06 AM Electronically Signed By:Smiley Whitfield RN
[2017-08-18 11:30] VITALS: BP 140/63
[2017-08-18 12:05] VITALS: PULSE 77; RESP 22; TEMP 98.2; O2SAT 95
--- NOTE | 2017-08-18 14:00 | ASDISCHSUM ---
Discharge Information Plan Status:SNF Medically Cleared to Leave:08/18/2017 Discharge Date:08/18/2017 01:43 PM CM D/C Disposition:[facility] Facility ADT D/C Disposition:[facility]cc Facility Projected Discharge Date:08/14/2017 12:00 AM Transportation at D/C:Wheelchair Van Discharge Delay Reason: Follow-Up Date:08/14/2017 12:00 AM Discharge Slot: Final Diagnosis: Placement Information Referral Type:*Residential/SNF Referral ID:[id number] [facility] Address 1:[address] Address 2: City:[place] Selection Factors: State:[place] Patient Contact Information Contact Name:LEXIS Relationship: Address:[address] Work Phone: City:[place] Alternate Phone: [facility]/Zip Code:[place] [address] Email: Financial Information Financial Class:Medicare Advantage Plans Primary Plan Desc:HUMANA CHOICE PPO MEDICARE Primary Plan Number:[id number] Secondary Plan Desc: Secondary Plan Number: Assessment Information [facility] Initial CM Assessment Living Arrangements What is your living Answers: Alone arrangement? Who do you live with? Type Of Residence What kind of residence do Answers: House you live in? Discharge Plan Comments Coordination Status Comments Notes: Pt is a 87 y/o female admitted w/ right leg cellulitis. Pt is currently being followed by wound care. CM spoke w/ son, Gato P#: [phone], [facility] regarding d/c POC. Gato would like referrals to be made to the [facility]. Gato specifically did not want referrals made to [facility]. CM faxed over referrals to [facility] [place] [facility] [place] and [facility]. PASRR completed. CM to follow. Date Signed: 08/13/2017 03:02 PM Electronically Signed By:MICH Uribe [facility] CM Progress Note CM Note CM Note Notes: Pt has been accepted to both the [facility] and to [facility]. CM notified son of this. Son went to tour the [employer] today and thought that it would be a fine placement. Son will tour [facility] tomorrow and touch base w/ CM regarding dispo placement. CM to follow. Date Signed: 08/14/2017 04:31 PM Electronically Signed By:MICH Uribe [facility] CM Progress Note CM Note CM Note Notes: Today Pt's son Gato confirmed that he visited SNFs and chooses [facility] for Pt. Toña from [facility] states auth is completed if Pt. is discharged today or Thursday. CM to follow for d/c POC. Current plan: SNF d/c to [facility] when ready. Date Signed: 08/15/2017 03:40 PM Electronically Signed By:Araseli Ruth LCSW [facility] CM Progress Note CM Note CM Note Notes: 08/18/2017 Case Management Note [facility] for 1300 pickup; wheelchair with O2. Faxed final d/c paperwork. RN to call report. Date Signed: 08/18/2017 11:06 AM Electronically Signed By:Smiley Whitfield RN Intervention Information Intervention Type:*IM-Signed Date of Service:08/14/2017 11:21 AM Patient Type:Inpatient Staff Member:Jossie Pedro Hours: Discipline: Severity: Comment: Intervention Type:*IM-Signed Date of Service:08/18/2017 09:48 AM Patient Type:Inpatient Staff Member:Jossie Pedro Hours: Discipline: Severity: Comment:
--- NOTE | 2017-08-18 14:00 | ASDISCHSUM ---
Discharge Information Plan Status:SNF Medically Cleared to Leave:08/18/2017 Discharge Date:08/18/2017 01:43 PM CM D/C Disposition:Detention Facility ADT D/C Disposition:Detention Facility Projected Discharge Date:08/14/2017 12:00 AM Transportation at D/C:Wheelchair Van Discharge Delay Reason: Follow-Up Date:08/14/2017 12:00 AM Discharge Slot: Final Diagnosis: Placement Information Referral Type:*Long-Term/SNF Referral ID:[id number] [facility] Address 1:[address] Address 2: City:[place] Selection Factors: State:[place] Patient Contact Information Contact Name:LEXIS Relationship: Address:[address] Work Phone: City:[place] Alternate Phone: [facility]/Zip Code:[place] [address] Email: Financial Information Financial Class:Medicare Advantage Plans Primary Plan Desc:HUMANA CHOICE PPO MEDICARE Primary Plan Number:[id number] Secondary Plan Desc: Secondary Plan Number: Assessment Information [facility] Initial CM Assessment Living Arrangements What is your living Answers: Alone arrangement? Who do you live with? Type Of Residence What kind of residence do Answers: House you live in? Discharge Plan Comments Coordination Status Comments Notes: Pt is a 87 y/o female admitted w/ right leg cellulitis. Pt is currently being followed by wound care. CM spoke w/ son, Gato P#: [phone], [facility] regarding d/c POC. Gato would like referrals to be made to the [facility]. Gato specifically did not want referrals made to [facility]. CM faxed over referrals to [facility] [place] [place] and [facility]. PASRR completed. CM to follow. Date Signed: 08/13/2017 03:02 PM Electronically Signed By:MICH Uribe [facility] CM Progress Note CM Note CM Note Notes: Pt [facility] and to [facility]. CM notified son of this. Son went to tour the [employer] today and thought that it would be a fine placement. Son will tour [facility] tomorrow and touch base w/ CM regarding dispo placement. CM to follow. Date Signed: 08/14/2017 04:31 PM Electronically Signed By:MICH Uribe [facility] CM Progress Note CM Note CM Note Notes: Today Pt's son Gato confirmed that he visited SNFs and chooses [facility] for Pt. Toña from [facility] states auth is completed if Pt. is discharged today or Thursday. CM to follow for d/c POC. Current plan: SNF d/c to [facility] when ready. Date Signed: 08/15/2017 03:40 PM Electronically Signed By:Araseli Ruth LCSW [facility] CM Progress Note CM Note CM Note Notes: 08/18/2017 Case Management Note [facility] pickup; wheelchair with O2. Faxed final d/c paperwork. RN to call report. Date Signed: 08/18/2017 11:06 AM Electronically Signed By:Smiley Whitfield RN Intervention Information Intervention Type:*IM-Signed Date of Service:08/14/2017 11:21 AM Patient Type:Inpatient Staff Member:Jossie Pedro Hours: Discipline: Severity: Comment: Intervention Type:*IM-Signed Date of Service:08/18/2017 09:48 AM Patient Type:Inpatient Staff Member:Jossie Pedro Hours: Discipline: Severity: Comment:
--- NOTE | 2017-08-18 14:00 | ASDISCHSUM ---
Discharge Information Plan Status:SNF Medically Cleared to Leave:08/18/2017 Discharge Date:08/18/2017 01:43 PM CM D/C Disposition:Shelter Facility ADT D/C Disposition:Shelter Facility Projected Discharge Date:08/14/2017 12:00 AM Transportation at D/C:Wheelchair Van Discharge Delay Reason: Follow-Up Date:08/14/2017 12:00 AM Discharge Slot: Final Diagnosis: Placement Information Referral Type:*Snf/SNF Referral ID:[id number] [facility] Address 1:[address] Address 2: City:[place] Selection Factors: State:[place] Patient Contact Information Contact Name:LEXIS Relationship: Address:[address] Work Phone: City:[place] Alternate Phone: [facility]/Zip Code:[place] [address] Email: Financial Information Financial Class:Medicare Advantage Plans Primary Plan Desc:HUMANA CHOICE PPO MEDICARE Primary Plan Number:[id number] Secondary Plan Desc: Secondary Plan Number: Assessment Information [facility] Initial CM Assessment Living Arrangements What is your living Answers: Alone arrangement? Who do you live with? Type Of Residence What kind of residence do Answers: House you live in? Discharge Plan Comments Coordination Status Comments Notes: Pt is a 87 y/o female admitted w/ right leg cellulitis. Pt is currently being followed by wound care. CM spoke w/ son, Gato P#: [phone], [facility] regarding d/c POC. Gato would like referrals to be made to the [facility]. Gato specifically did not want referrals made to [facility]. CM faxed over referrals to [facility] [place] [facility] [place] and [facility]. PASRR completed. CM to follow. Date Signed: 08/13/2017 03:02 PM Electronically Signed By:MICH Uribe [facility] CM Progress Note CM Note CM Note Notes: Pt has been accepted to both the [facility] and to [facility]. CM notified son of this. Son went to tour the [employer] today and thought that it would be a fine placement. Son will tour [facility] tomorrow and touch base w/ CM regarding dispo placement. CM to follow. Date Signed: 08/14/2017 04:31 PM Electronically Signed By:MICH Uribe [facility] CM Progress Note CM Note CM Note Notes: Today Pt's son Gato confirmed that he visited SNFs and chooses [facility] for Pt. Toña from [facility] states auth is completed if Pt. is discharged today or Thursday. CM to follow for d/c POC. Current plan: SNF d/c to [facility] when ready. Date Signed: 08/15/2017 03:40 PM Electronically Signed By:Araseli Ruth LCSW [facility] CM Progress Note CM Note CM Note Notes: 08/18/2017 Case Management Note [facility] for 1300 pickup; wheelchair with O2. Faxed final d/c paperwork. RN to call report. Date Signed: 08/18/2017 11:06 AM Electronically Signed By:Smiley Whitfield RN Intervention Information Intervention Type:*IM-Signed Date of Service:08/14/2017 11:21 AM Patient Type:Inpatient Staff Member:Jossie Pedro Hours: Discipline: Severity: Comment: Intervention Type:*IM-Signed Date of Service:08/18/2017 09:48 AM Patient Type:Inpatient Staff Member:Jossie Pedro Hours: Discipline: Severity: Comment:
--- NOTE | 2017-08-21 09:20 | PQFORM ---
PHYSICIAN QUERY FORM Needs Your Response This query form is being sent to you to assure this patient record is coded properly. Please respond to the question below: MED SPECIALIST QUESTION: Dear Dr. Pearson, For coding purposes (there is a different code choice for excisional versus non excisional debridement)- please clarify if the debridement done on 16 Aug 2017 was: ___~ Excisional ___~ Non Excisional ___~ Other Thank You MELANY Abel [facility]/Coding Dept. [phone] INSTRUCTIONS FOR RESPONSE: Answer question by clicking on the "Edit Document" button. Move cursor to area below the stars. When complete, hit "Save." Click on the "Sign" button, then click "Sign" again. Type in your PIN and hit "Enter." non excisional MTDD
--- NOTE | 2017-08-21 09:20 | PQFORM ---
PHYSICIAN QUERY FORM Needs Your Response This query form is being sent to you to assure this patient record is coded properly. Please respond to the question below: FISHER CRAB QUESTION: Dear Dr. Pearson, For coding purposes (there is a different code choice for excisional versus non excisional debridement)- please clarify if the debridement done on 16 Aug 2017 was: ___~ Excisional ___~ Non Excisional ___~ Other Thank You MELANY Abel [facility]/Coding Dept. [phone] INSTRUCTIONS FOR RESPONSE: Answer question by clicking on the "Edit Document" button. Move cursor to area below the stars. When complete, hit "Save." Click on the "Sign" button, then click "Sign" again. Type in your PIN and hit "Enter." non excisional MTDD
--- NOTE | 2017-08-21 09:20 | PQFORM ---
PHYSICIAN QUERY FORM Needs Your Response This query form is being sent to you to assure this patient record is coded properly. Please respond to the question below: PARTRIDGE FARMER QUESTION: Dear Dr. Pearson, For coding purposes (there is a different code choice for excisional versus non excisional debridement)- please clarify if the debridement done on 16 Aug 2017 was: ___~ Excisional ___~ Non Excisional ___~ Other Thank You MELANY Abel [facility]/Coding Dept. [phone] INSTRUCTIONS FOR RESPONSE: Answer question by clicking on the "Edit Document" button. Move cursor to area below the stars. When complete, hit "Save." Click on the "Sign" button, then click "Sign" again. Type in your PIN and hit "Enter." non excisional MTDD
== END 2017-08-18 13:43 | DRG 603 ==
LOC: F3E 21:00 → F2W 08-11 06:09
PROVIDERS: ADMIT Hospitalist; ATTEND Hospitalist
PROC: 0HDNXZZ Extraction of Left Foot Skin, External Approach (ICD-10-PCS; principal; 2017-08-16)
PROC: 0HDMXZZ Extraction of Right Foot Skin, External Approach (ICD-10-PCS; principal; 2017-08-16)
PROC: 0HBRXZZ Excision of Toe Nail, External Approach (ICD-10-PCS; principal; 2017-08-16)
DX: L03.115 Cellulitis of right lower limb (principal); I48.92 Unspecified atrial flutter; I48.91 Unspecified atrial fibrillation; I87.391 Chronic venous hypertension (idiopathic) with other complications of right lower extremity; L84 Corns and callosities; B95.61 Methicillin susceptible Staphylococcus aureus infection as the cause of diseases classified elsewhere; I10 Essential (primary) hypertension; B35.3 Tinea pedis; B35.1 Tinea unguium; L60.0 Ingrowing nail; F32.9 Major depressive disorder, single episode, unspecified; R26.89 Other abnormalities of gait and mobility; G31.84 Mild cognitive impairment of uncertain or unknown etiology
CPT/HCPCS: 92507-GN; 92523-GN; 96365; 97116-GP; 97161-GP; 97166-GO; 97530-GP; 97535-GO; G9168-GO-CI; G9169-GN-CI; J0690; J1650; J3370

== ENCOUNTER 2017-09-18 12:36 | Day surgery (SDC) | payer OTHER ==
[2017-09-18] MEDS ORDERED: BENZOCAINE UNIT DOSE SPRAY HURRICAINE MM ONE (12:52)
[2017-09-18] MEDS ORDERED: NS 500 ML IV ONE (12:52)
[2017-09-18] MEDS ORDERED: ATROPINE SULFATE 1 MG/10 ML SYR IVP ONE (12:52)
[2017-09-18] MEDS ORDERED: fentaNYL 100 MCG/2 ML INJ IVP ONE (12:52)
[2017-09-18] MEDS ORDERED: MIDAZOLAM 2 MG/2 ML VIAL IVP ONE (12:52)
[2017-09-18] MEDS ORDERED: ATROPINE SULFATE 1 MG/10 ML SYR ONE (12:53)
--- NOTE | 2017-09-18 13:02 | CPEKG ---
Heart Rate: 115 RR Interval: 522 QRSD Interval: 86 QT Interval: 304 QTC Interval: 421 QRS [place]: 97 T Wave [place]: -33 EKG Severity - ABNORMAL ECG - EKG Impression: ATRIAL FLUTTER, A-RATE 238 EKG Impression: RIGHT AXIS DEVIATION EKG Impression: NONSPECIFIC T ABNORMALITIES, INFERIOR LEADS EKG Impression: BORDERLINE ST ELEVATION, INFERIOR LEADS Electronically Signed By: Howie Leonardo 19-Sep-2017 13:22:57
[2017-09-18 13:30] LABS: APTT 48.7 SEC (23.0-38.0)
[2017-09-18 13:40] LABS: ANION GAP 7 mEq/L (8-16); CALCIUM 8.9 mg/dL (8.5-10.4); CARBON DIOXIDE 26 mEq/l (22-31); CHLORIDE 104 mEq/L (97-110); CREATININE 0.8 mg/dL (0.6-1.0); GLOMERULAR FILTRATION RATE > 60; GLUCOSE 114 mg/dL (70-100); MAGNESIUM 2.1 mg/dL (1.6-2.3); POTASSIUM 4.6 mEq/L (3.5-5.2); SODIUM 137 mEq/L (134-144)
--- NOTE | 2017-09-18 14:11 | PDHPUP ---
History & Physical Update H&P update statement: This history and physical update is based on an assessment of the patient which was completed after admission or registration (within 24 hours), but prior to the surgery/procedure. H&P update: H&P reviewed & patient examined, no change in patient's condition since H&P completed
--- NOTE | 2017-09-18 14:17 | PDANEPAE ---
ANE History of Present Illness 87 yo for cv afib ANE Past Medical History - Cardiovascular History Hx Arrhythmias: Yes - Pulmonary History Hx Oxygen in Use at Home: No Hx Sleep Apnea: No - Endocrine History Hx Diabetes: No - Chronic Pain History Chronic Pain: No ANE Review of Systems Review of Systems: - Exercise capacity METS (RN): 3 METS ANE Patient History - Allergies Allergies/Adverse Reactions: aspirin Allergy (Verified 09/18/17 12:16) codeine Allergy (Verified 09/18/17 12:16) - Home Medications Home medications: home medication list seen and reviewed Home Medications: Sertraline HCl [Zoloft 50mg (*)] 50 mg PO HS 08/10/17 [Last Taken Unknown] - NPO status NPO Status: no food or drink >8 hours - Anes Hx Anes Hx: no prior problems - Smoking Hx Smoking Status: Never smoked ANE Labs/Vital Signs - Labs Result Diagrams: 09/18/17 13:10 - Vital Signs Height: 4 ft 11.84 in Weight: 63.5 kg ANE Physical Exam - Airway Neck exam: FROM Mallampati Score: Class 2 Mouth exam: normal dental/mouth exam - Pulmonary Pulmonary: no respiratory distress - Cardiovascular Cardiovascular: regular rate and rhythym - ASA Status ASA Status: II ANE Anesthesia Plan Anesthesia Plan: GA with mask
[2017-09-18] MEDS ORDERED: PROPOFOL 200 MG/20 ML VIAL ONE (14:21)
--- NOTE | 2017-09-18 14:46 | CPEKG ---
Heart Rate: 63 RR Interval: 952 P-R Interval: 164 QRSD Interval: 70 QT Interval: 420 QTC Interval: 430 P [place]: -48 QRS [place]: 82 T Wave [place]: 20 EKG Severity - BORDERLINE ECG - EKG Impression: NSR EKG Impression: BORDERLINE RIGHT AXIS DEVIATION Electronically Signed By: Howie Leonardo 19-Sep-2017 13:22:46
--- NOTE | 2017-09-18 14:47 | POSTANESTH ---
Post Anesthetic Evaluation Cardiovascular Status: Tx Hyper/Hypo-tension Respiratory Status: Normal, Stable Level of Consciousness/Mental Status: Can Participate in Eval Pain Control: Adequate, Prn Tx Ordered Nausea/Vomiting Control: Adequate, Prn Tx Ordered Complications Possibly Related to Anesthesia: None Noted
--- NOTE | 2017-09-18 14:53 | PDTEE1 ---
FABIO Cardioversion Procedure Procedure: electrical cardioversion, transesophageal echo Indications: other Procedural Details: Pads were placed in anterior-posterior position. FABIO probe was advanced and standard images obtained. There is no evidence of left atrial or left atrial appendage thrombus. Synchronized cardioversion attempt #1: 200J Results: normal sinus rhythm Conclusions: successful FABIO cardioversion Patient Problems: Problems Problem Status Onset Cellulitis of right leg Acute
--- NOTE | 2017-09-18 15:54 | ECHO ---
[email or web address] [address] [address] Main: [phone] Fax: Transesophageal Echocardiography Name: ALYSSIA HERNANDEZ MR#: [id number] Study Date: 09/18/2017 Study Time: 02:20 PM Date of : 1930 Age: 87 year(s) Height: ( ) Weight: ( ) BSA: Gender: Female Examination: FABIO Indication: pre-cardioversion; r/o clot Image Quality: Contrast: I.V. dose of agitated saline Requested by: Terrance Vasques Heart Rate: Rhythm: BP: / Procedure Staff Payment Specialist: Cristiane Daly Reading Physician: Terrance Vasques Requesting Provider: FABIO Exam Details Contrast: I.V. dose of agitated saline Conclusions: Normal size left ventricle. Normal global systolic LV function. An agitated saline study was performed and was negative for intracardiac shunting. No thrombus in left appendage. There is moderate thickening of the mitral valve leaflets. Mild-moderate mitral annular calcification. Mild mitral valve regurgitation is present. Moderate tricuspid regurgitation is present. Measurements: Chambers Valvular Assessment AV/MV Valvular Assessment TV/PV Normal Normal Normal Name Value Range Name Value Range Name Value Range Additional Measurements: Findings: Left Ventricle: Normal size left ventricle. Normal global systolic LV function. Right Ventricle: Normal size right ventricle. Normal RV function. Left Atrium: Patient: ALYSSIA HERNANDEZ Study Date: 09/18/2017 Page 1 of 2 02:20 PM An agitated saline study was performed and was negative for intracardiac shunting. No thrombus is noted in the left atrium. Left atrial enlargement. Lipomatous interatrial septum noted. Left Atrial Appendage: No thrombus in left appendage. Right Atrium: Right atrial enlargement.. Mitral Valve: There is moderate thickening of the mitral valve leaflets. Mild-moderate mitral annular calcification. Mild mitral valve regurgitation is present. Aortic Valve: The aortic valve is normal in appearance. The aortic valve is tri-leaflet. There is no aortic valve regurgitation. Tricuspid Valve: The tricuspid valve is normal in appearance and function. Moderate tricuspid regurgitation is present. l1n (No Signature Object) Patient: ALYSSIA HERNANDEZ Study Date: 09/18/2017 Page 2 of 2 02:20 PM [id number]
== END 2017-09-18 17:00 | disposition home or self-care (01) ==
LOC: FCATH 12:36
PROVIDERS: ATTEND Internal Medicine Interventional Cardiology
DX: I48.0 Paroxysmal atrial fibrillation (principal)
CPT/HCPCS: J0461; J2704